=== PATIENT | male | born 1935 | race Caucasian/White ===

== ENCOUNTER 2019-01-30 06:14 | Day surgery (SDC) | payer MEDICARE, BC ==
[2019-01-30] MEDS ORDERED: Lactated Ringers 1,000 ML IV SCH (07:30)
[2019-01-30] MEDS ORDERED: fentaNYL 100 MCG/2 ML SDV ONE (07:35)
[2019-01-30] MEDS ORDERED: Propofol 200 MG/20 ML SDV ONE (07:35)
--- NOTE | 2019-01-30 08:45 | OR ---
DATE OF PROCEDURE: 01/30/2019 PREOPERATIVE DIAGNOSES: Blood in stool, history of colon polyps. POSTOPERATIVE DIAGNOSES: Small transverse colon polyp, blood in stool, etiology unknown; history of polyps. PROCEDURE: Colonoscopy to the cecum with biopsy resection of small transverse colon polyp. SURGEON: Julian Matos MD ANESTHESIA: IV anesthesia with monitored anesthesia care. INDICATION: This 83-year-old white male has blood in the stool. He is referred for a colonoscopy because of this. Additionally, 3 years ago, he had benign polyps removed from his colon. I counseled him for a colonoscopy with possible biopsy and/or polypectomy, including risks and alternatives, and he gave his informed consent to proceed. DESCRIPTION OF PROCEDURE: The patient was placed in the left lateral decubitus position. IV anesthesia was administered by the Anesthesia Service. Time-out was held. A rectal exam was performed, which was unremarkable. The flexible video Olympus colonoscope was introduced through his anus, up his rectum, and out his colon all the way to the cecum. En route, in the transverse colon, we saw a small polyp which was removed with a couple of bites of the biopsy forceps. Once the cecum was reached, the scope was slowly withdrawn examining the mucosa throughout. No additional mucosal abnormalities were noted. The scope was retroflexed in the rectum with the distal rectum appearing unremarkable. The scope was straightened and removed. He tolerated the procedure well. Julian Matos MD /[id number]
[2019-01-30 09:03] VITALS: BP 130/67
== END 2019-01-30 09:45 | disposition home or self-care (01) ==
LOC: JP.SDS 06:14
PROVIDERS: ATTEND Surgery
DX: K92.1 Melena (principal); K63.5 Polyp of colon; I10 Essential (primary) hypertension; I25.10 Atherosclerotic heart disease of native coronary artery without angina pectoris; I48.91 Unspecified atrial fibrillation; E78.5 Hyperlipidemia, unspecified; Z88.1 Allergy status to other antibiotic agents; Z86.010 Personal history of colon polyps
CPT/HCPCS: 45380; 88305; J2704; J3010; J7120

== ENCOUNTER 2020-01-27 08:14 | Day surgery (SDC) | payer MEDICARE, BC ==
[~2020-01-27 08:14] MED LIST: Dextrose 5%-Lactated Ringers 1,000 ML IV SCH; Propofol 200 MG/20 ML SDV ONE; fentaNYL 100 MCG/2 ML SDV ONE
[2020-01-27 10:43] VITALS: BP 116/74; PULSE 53
--- NOTE | 2020-02-09 14:45 | OR ---
DATE OF PROCEDURE: 01/27/2020 SURGEON: Yuna Steiner MD PREOPERATIVE DIAGNOSIS: History of colon polyps with some intermittent rectal bleeding. POSTOPERATIVE DIAGNOSIS: History of colon polyps with intermittent rectal bleeding associated with diffusely excoriated hemorrhoidal columns. OPERATIVE PROCEDURE: Flexible colonoscopy. ANESTHESIA: IV sedation. INDICATIONS FOR PROCEDURE: This is an 84-year-old male presenting with some intermittent rectal bleeding. He does have a history of colon polyps and was referred for a colonoscopy with biopsies and/or polypectomy as indicated. Potential risks of the procedure were reviewed including bleeding and perforation, and he wishes to proceed. DETAILS OF PROCEDURE: The patient was taken to the operating room and placed in a left lateral decubitus position. IV sedation was administered after which the initial digital rectal exam was performed, which was unremarkable. Colonoscope was then placed in the rectum with retroflexion revealing quite excoriated hemorrhoidal columns diffusely. These were mixed hemorrhoids, and none would appear to be appropriate for any banding procedure. The scope was then eventually passed to the level of the cecum. There was otherwise no evident pathology. There was no diverticular disease. No areas of colitis. No polyps or other signs of neoplasia. The scope was then withdrawn, and the above findings were reconfirmed, and the procedure then concluded. If the patient continues to have some problematic bleeding, something like Proctofoam might be useful for control of the inflammation in that area as well as avoidance of any episodes of constipation or ongoing diarrhea. Follow up with Surgery at this point will be p.r.n. Yuan Steiner MD /[id number]
== END 2020-01-27 10:45 | disposition home or self-care (01) ==
LOC: JP.SDS 08:14
PROVIDERS: ATTEND Surgery
DX: K64.8 Other hemorrhoids (principal); K62.5 Hemorrhage of anus and rectum; I48.91 Unspecified atrial fibrillation; E11.22 Type 2 diabetes mellitus with diabetic chronic kidney disease; I12.9 Hypertensive chronic kidney disease with stage 1 through stage 4 chronic kidney disease, or unspecified chronic kidney disease; N18.9 Chronic kidney disease, unspecified; Z86.010 Personal history of colon polyps; Z98.890 Other specified postprocedural states
CPT/HCPCS: 45378; J2704; J3010; J7121

== ENCOUNTER 2021-02-14 12:08 | Inpatient (IN) | payer MEDICARE, BC ==
[2021-02-14] MEDS ORDERED: Sodium Chloride 0.9% 10 ML Syringe FLUSH PRN ×3 (12:40→14:50)
--- NOTE | 2021-02-14 12:54 | EDM.PDOC ---
ED HPI GENERAL MEDICAL PROBLEM - General Chief Complaint: Gastrointestinal Problem Stated Complaint: HEART PROBLEMS Time Seen by Provider: 02/14/21 12:40 Source of Information: Reports: Patient History Limitations: Reports: No Limitations - History of Present Illness INITIAL COMMENTS - FREE TEXT/NARRATIVE: 85 yo male presents with maroon rectal bleeding today. Is a little light-headed with standing. Is taking ASA and warfarin. No pain, nausea or vomiting. No hx of GI bleeding, but does have a hx of diverticular dz. His thinks he looks pale. Takes warfarin for afib. Onset: Today, Sudden Onset Date: 02/14/21 Duration: Hour(s):, Waxing/Waning Location: Reports: Abdomen Quality: Reports: Other (no pain) Severity: Moderate Improves with: Reports: None Worsens with: Reports: Other (unknown) Context: Reports: Other (See HPI) Associated Symptoms: Reports: Other (pale, light-headed). Denies: Chest Pain, Diaphoresis, Nausea/Vomiting, Shortness of Breath Treatments CONVEYANCER: Reports: Other (see below) (none) - Related Data Allergies Allergy/AdvReac Type Severity Reaction Status Date / Time tetracycline [Tetracycline] AdvReac Nausea and Verified 02/14/21 12:56 Vomiting Home Meds: Home Meds Aspirin [Adult Low Dose Aspirin EC] 81 mg PO DAILY 10/08/13 [History] Ciclopirox [Loprox 0.77% Crm] 1 applic TOP ASDIRECTED PRN 10/08/13 [History] Hydrochlorothiazide/Valsartan [Diovan HCT 160-12.5 MG] 25 - 160 mg PO DAILY 10/08/13 [History] Multivitamin with Minerals [Multiple Vitamin] 1 tab PO DAILY 10/08/13 [History] atorvaSTATin [Lipitor] 10 mg PO BEDTIME 10/08/13 [History] Warfarin [Coumadin] 5 mg PO ASDIRECTED 01/24/16 [History] Nitroglycerin [Nitrostat] 0.4 mg SL ASDIRECTED PRN 01/04/19 [History] Psyllium [Metamucil] 1 gm PO DAILY 01/04/19 [History] allopurinoL [Zyloprim] 100 mg PO DAILY 01/04/19 [History] Isosorbide Mononitrate [Imdur] 30 mg PO DAILY 01/28/19 [History] Metoprolol Succinate [Toprol XL 50mg] 50 mg PO DAILY 01/28/19 [History] Lutein 20 mg PO DAILY 01/30/19 [History] Past Medical History HEENT History: Reports: Impaired Vision Other HEENT History: wears glasses Cardiovascular History: Reports: Afib, CAD, High Cholesterol, Hypertension Respiratory History: Reports: Asthma Gastrointestinal History: Reports: Chronic Constipation, Colon Polyp, Dive rticulosis Genitourinary History: Reports: BPH, Renal Disease, Other (See Below) Other Genitourinary History: hematuria Musculoskeletal History: Reports: Fracture, Gout Neurological History: Reports: Migraines, Seizure, Vertigo, Other (See Below) Other Neuro History: meniere disease with tinnitus Endocrine/Metabolic History: Reports: Diabetes, Type II, Obesity/BMI 30+ Hematologic History: Reports: Blood Transfusion(s) Oncologic (Cancer) History: Reports: Prostate, Other (See Below) Other Oncologic History: basal cell carcinoma Dermatologic History: Reports: Other (See Below) Other Dermatologic History: fungal infections - Infectious Disease History Infectious Disease History: Reports: Chicken Pox, Measles, Mumps - Past Surgical History HEENT Surgical History: Reports: Tonsillectomy Cardiovascular Surgical History: Reports: Coronary Artery Bypass, Coronary Artery Stent Respiratory Surgical History: Reports: None GI Surgical History: Reports: Colonoscopy Male Surgical History: Reports: Prostate Biopsy, Prostatectomy, Vasectomy Social & Family History - Family History Family Medical History: No Pertinent Family History - Caffeine Use Caffeine Use: Reports: Tea ED ROS GENERAL - Review of Systems Review Of Systems: See Below Constitutional: Reports: No Symptoms HEENT: Reports: No Symptoms Respiratory: Reports: No Symptoms Cardiovascular: Reports: Lightheadedness GI/Abdominal: Reports: Bloody Stool, Diarrhea. Denies: Abdominal Pain, Constipation, Nausea, Vomiting : Reports: No Symptoms Musculoskeletal: Reports: No Symptoms Skin: Reports: Pallor Neurological: Reports: No Symptoms ED EXAM, GI/ABD - Physical Exam Exam: See Below Exam Limited By: No Limitations General Appearance: Alert, WD/WN, No Apparent Distress Eyes: Bilateral: Normal Appearance Ears: Normal External Exam, Normal Canal, Hearing Grossly Normal Nose: Normal Inspection, No Blood Throat/Mouth: Normal Inspection, Normal Lips, Normal Oropharynx, Normal Voice, No Airway Compromise Head: Atraumatic, Normocephalic Neck: Normal Inspection Respiratory/Chest: No Respiratory Distress, Lungs Clear, Normal Breath Sounds, No Accessory Muscle Use Cardiovascular: Regular Rate, Rhythm, No Edema GI/Abdominal Exam: Soft, Non-Tender, No Distention, Abnormal Bowel Sounds (increased). No: Distended, Guarding, Rigid, Rebound, Tender Back Exam: Normal Inspection Extremities: Normal Inspection, Normal Range of Motion, Non-Tender, No Pedal Edema Neurological: Alert, Oriented, CN II-XII Intact, Normal Cognition, No Motor/Sensory Deficits Psychiatric: Normal Affect, Normal Mood Skin Exam: Warm, Dry, Intact, Normal Color, No Rash Course - Vital Signs Text/Narrative:: Dr. Dunne called @ 1334h Last Recorded V/S: Last Vital Signs Temp 36.4 C 02/14/21 12:55 Pulse 66 02/14/21 12:55 Resp 17 02/14/21 12:55 BP 109/60 02/14/21 12:55 Pulse Ox 96 02/14/21 12:55 - Orders/Labs/Meds Orders: Active Orders 24 hr Category Date Time Status FRESH FROZEN PLASMA [BBK] Stat Lab 02/14/21 12:54 Received RED BLOOD CELLS LP [BBK] Stat Lab 02/14/21 12:54 Received TYPE AND SCREEN [BBK] Stat Lab 02/14/21 12:54 Received Phytonadione [AquaMephyton] 2 mg Med 02/14/21 13:15 Active Sodium Chloride 0.9% [Normal Saline] 50 ml IV ONETIME Sodium Chloride 0.9% [Saline Flush] Med 02/14/21 12:40 Active 10 ml FLUSH ASDIRECTED PRN Sodium Chloride 0.9% [Saline Flush] Med 02/14/21 13:07 Active 10 ml FLUSH ASDIRECTED PRN Saline Lock Insert [OM.PC] Routine Oth 02/14/21 12:40 Ordered Saline Lock Insert [OM.PC] Routine Oth 02/14/21 13:07 Ordered Transfuse Fresh Frozen Plasma [COMM] Stat Oth 02/14/21 13:06 Ordered Medication Orders Phytonadione 2 mg/ Sodium (Chloride) 50.2 mls @ 98.431 mls/hr IV ONETIME ONE Stop: 02/14/21 13:45 Last Admin: 02/14/21 13:20 Dose: 98.431 mls/hr Documented by: [place] Sodium Chloride (Sodium Chloride 0.9% 10 Ml Syringe) 10 ml FLUSH ASDIRECTED PRN PRN Reason: Keep Vein Open Last Admin: 02/14/21 13:21 Dose: 10 ml Documented by: MALINDA Sodium Chloride (Sodium Chloride 0.9% 10 Ml Syringe) 10 ml FLUSH ASDIRECTED PRN PRN Reason: Keep Vein Open Labs: Laboratory Tests 02/14/21 02/14/21 02/14/21 Range/Units 12:54 12:54 12:54 WBC 5.2 (4.5-11.0) K/uL RBC 2.46 L (4.30-5.90) M/uL Hgb 7.1 L (12.0-15.0) g/dL Hct 22.5 L (40.0-54.0) % MCV 92 (80-98) fL MCH 29 (27-31) pg MCHC 32 (32-36) % Plt Count 193 (150-400) K/uL PT 33.6 H (9.5-12.0) sec INR 3.15 H (0.80-1.20) Sodium 137 L (140-148) mmol/L Potassium 4.5 (3.6-5.2) mmol/L Chloride 104 (100-108) mmol/L Carbon Dioxide 25 (21-32) mmol/L Anion Gap 12.5 (5.0-14.0) mmol/L BUN 60 H (7-18) mg/dL Creatinine 1.9 H (0.8-1.3) mg/dL Est Cr Clr Drug Dosing 31.38 mL/min Estimated GFR (MDRD) 34 L (>60) Glucose 152 H (74-106) mg/dL Calcium 8.9 (8.5-10.1) mg/dL Meds: Medications Generic Name Dose Route Start Last Admin Trade Name Freq PRN Reason Stop Dose Admin Phytonadione 2 mg/ Sodium 50.2 mls @ 98.431 mls/hr 02/14/21 13:15 02/14/21 13:20 Chloride IV 02/14/21 13:45 98.431 mls/hr ONETIME ONE Administration Sodium Chloride 10 ml 02/14/21 12:40 02/14/21 13:21 Sodium Chloride 0.9% 10 Ml Syringe FLUSH 10 ml ASDIRECTED PRN Administration Keep Vein Open Sodium Chloride 10 ml 02/14/21 13:07 Sodium Chloride 0.9% 10 Ml Syringe FLUSH ASDIRECTED PRN Keep Vein Open Discontinued Medications Generic Name Dose Route Start Last Admin Trade Name Greggq PRN Reason Stop Dose Admin Phytonadione 2 mg/ Sodium 51 mls @ 100 mls/hr 02/14/21 12:52 Chloride IV 02/14/21 13:22 ONETIME ONE Departure - Departure Time of Disposition: 13:45 Disposition: Admitted As Inpatient 68 Condition: Serious Clinical Impression: GI bleed Qualifiers: GI bleed type/associated pathology: diverticulosis Qualified Code(s): K57.91 - Diverticulosis of intestine, part unspecified, without perforation or abscess with bleeding Anemia Qualifiers: Anemia type: iron deficiency Iron deficiency anemia type: chronic blood loss Qualified Code(s): D50.0 - Iron deficiency anemia secondary to blood loss (chronic) CRF (chronic renal failure) Qualifiers: Chronic kidney disease stage: stage 3 (moderate) Chronic kidney disease stage 3 subtype: stage 3b (GFR 30-44) Qualified Code(s): N18.32 - Chronic kidney disease, stage 3b - Discharge Information *PRESCRIPTION DRUG MONITORING PROGRAM REVIEWED*: Not Applicable *COPY OF PRESCRIPTION DRUG MONITORING REPORT IN PATIENT MERRICK: Not Applicable Referrals: Jurgen Vu MD [Primary Care Provider] - Forms: ED Department Discharge Sepsis Event Note (ED) - Focused Exam Vital Signs: Vital Signs Temp Pulse Resp BP Pulse Ox 02/14/21 12:55 36.4 C 66 17 109/60 96 02/14/21 12:16 36.4 C 66 17 109/60 96 - My Orders Last 24 Hours: My Active Orders 02/14/21 12:40 Sodium Chloride 0.9% [Saline Flush] 10 ml FLUSH ASDIRECTED PRN Saline Lock Insert [OM.PC] Routine 02/14/21 12:54 FRESH FROZEN PLASMA [BBK] Stat RED BLOOD CELLS LP [BBK] Stat TYPE AND SCREEN [BBK] Stat 02/14/21 13:06 Transfuse Fresh Frozen Plasma [COMM] Stat 02/14/21 13:07 Sodium Chloride 0.9% [Saline Flush] 10 ml FLUSH ASDIRECTED PRN Saline Lock Insert [OM.PC] Routine 02/14/21 13:15 Phytonadione [AquaMephyton] 2 mg Sodium Chloride 0.9% [Normal Saline] 50 ml IV ONETIME - Assessment/Plan Last 24 Hours: My Active Orders 02/14/21 12:40 Sodium Chloride 0.9% [Saline Flush] 10 ml FLUSH ASDIRECTED PRN Saline Lock Insert [OM.PC] Routine 02/14/21 12:54 FRESH FROZEN PLASMA [BBK] Stat RED BLOOD CELLS LP [BBK] Stat TYPE AND SCREEN [BBK] Stat 02/14/21 13:06 Transfuse Fresh Frozen Plasma [COMM] Stat 02/14/21 13:07 Sodium Chloride 0.9% [Saline Flush] 10 ml FLUSH ASDIRECTED PRN Saline Lock Insert [OM.PC] Routine 02/14/21 13:15 Phytonadione [AquaMephyton] 2 mg Sodium Chloride 0.9% [Normal Saline] 50 ml IV ONETIME
--- NOTE | 2021-02-14 14:01 | PCM.HP.2 ---
H&P History of Present Illness - General Date of Service: 02/14/21 Admit Problem/Dx: Admission Diagnosis/Problem Admission Diagnosis/Problem Bleeding Source of Information: Patient, Family, Provider, RN Notes Reviewed History Limitations: Reports: No Limitations - History of Present Illness Initial Comments - Free Text/Narative: Mr. Stevens is an 85-year-old gentleman who was admitted through the emergency department with progressive weakness and lightheadedness secondary to GI bleed with acute blood loss anemia. He has a prior history of lower GI bleeding secondary to diverticuli. Over the past 6 days has noted recurrent episodes of hematochezia. The hematochezia has become significantly worse over the last 24 hours. He is on oral anticoagulation with warfarin and aspirin, INR in the emergency department was noted to be supratherapeutic. Hemoglobin obtained in the emergency department is low at 7.1. He has been given IV vitamin K in the emergency department and transfusion of red blood cells as well as fresh frozen plasma has been ordered. - Related Data Allergies/Adverse Reactions: Allergies Allergy/AdvReac Type Severity Reaction Status Date / Time tetracycline [Tetracycline] AdvReac Nausea and Verified 02/14/21 12:56 Vomiting Home Medications: Home Meds Aspirin [Adult Low Dose Aspirin EC] 81 mg PO DAILY 10/08/13 [History] Ciclopirox [Loprox 0.77% Crm] 1 applic TOP ASDIRECTED PRN 10/08/13 [History] Hydrochlorothiazide/Valsartan [Diovan HCT 160-12.5 MG] 25 - 160 mg PO DAILY 10/08/13 [History] Multivitamin with Minerals [Multiple Vitamin] 1 tab PO DAILY 10/08/13 [History] atorvaSTATin [Lipitor] 10 mg PO BEDTIME 10/08/13 [History] Warfarin [Coumadin] 5 mg PO ASDIRECTED 01/24/16 [History] Nitroglycerin [Nitrostat] 0.4 mg SL ASDIRECTED PRN 01/04/19 [History] Psyllium [Metamucil] 1 gm PO DAILY 01/04/19 [History] allopurinoL [Zyloprim] 100 mg PO DAILY 01/04/19 [History] Isosorbide Mononitrate [Imdur] 30 mg PO DAILY 01/28/19 [History] Metoprolol Succinate [Toprol XL 50mg] 50 mg PO DAILY 01/28/19 [History] Lutein 20 mg PO DAILY 01/30/19 [History] Past Medical History HEENT History: Reports: Impaired Vision Other HEENT History: wears glasses Cardiovascular History: Reports: Afib, CAD, High Cholesterol, Hypertension Respiratory History: Reports: Asthma Gastrointestinal History: Reports: Chronic Constipation, Colon Polyp, Diverticulosis Genitourinary History: Reports: BPH, Renal Disease, Other (See Below) Other Genitourinary History: hematuria Musculoskeletal History: Reports: Fracture, Gout Neurological History: Reports: Migraines, Seizure, Vertigo, Other (See Below) Other Neuro History: meniere disease with tinnitus Endocrine/Metabolic History: Reports: Diabetes, Type II, Obesity/BMI 30+ Hematologic History: Reports: Blood Transfusion(s) Oncologic (Cancer) History: Reports: Prostate, Other (See Below) Other Oncologic History: basal cell carcinoma Dermatologic History: Reports: Other (See Below) Other Dermatologic History: fungal infections - Infectious Disease History Infectious Disease History: Reports: Chicken Pox, Measles, Mumps - Past Surgical History HEENT Surgical History: Reports: Tonsillectomy Cardiovascular Surgical History: Reports: Coronary Artery Bypass, Coronary Artery Stent Respiratory Surgical History: Reports: None GI Surgical History: Reports: Colonoscopy Male Surgical History: Reports: Prostate Biopsy, Prostatectomy, Vasectomy Social & Family History - Family History Family Medical History: No Pertinent Family History - Tobacco Use Tobacco Use Status *Q: Never Tobacco User - Caffeine Use Caffeine Use: Reports: Tea - Recreational Drug Use Recreational Drug Use: No H&P Review of Systems - Review of Systems: Review Of Systems: See Below General: Reports: Weakness, Fatigue. Denies: Fever, Chills HEENT: Reports: No Symptoms Pulmonary: Reports: No Symptoms Cardiovascular: Reports: No Symptoms Gastrointestinal: Reports: Hematochezia. Denies: Abdominal Pain, Constipation, Diarrhea, Distension, Hematemesis, Nausea, Vomiting Genitourinary: Reports: No Symptoms Musculoskeletal: Reports: No Symptoms Skin: Reports: No Symptoms Psychiatric: Reports: No Symptoms Neurological: Reports: No Symptoms Hematologic/Lymphatic: Reports: No Symptoms Immunologic: Reports: No Symptoms Exam - Exam Exam: See Below - Vital Signs Vital Signs: Last Vital Signs Temp 97.5 F 02/14/21 12:55 Pulse 66 02/14/21 12:55 Resp 17 09/05/21 12:55 BP 109/60 02/14/21 12:55 Pulse Ox 96 02/14/21 12:55 Weight: 215 lb - Exam Quality Assessment: DVT Prophylaxis General: Alert, Oriented, Cooperative, Moderate Distress HEENT: Conjunctiva Clear, Hearing Intact, Mucosa Moist & Twilight, Normal Nasal Septum, Posterior Pharynx Clear, Pupils Equal Neck: Supple, Trachea Midline, +2 Carotid Pulse wo Bruit Lungs: Clear to Auscultation, Normal Respiratory Effort Cardiovascular: Regular Rate, Normal S1, Normal S2, Irregular Rhythm. No: Systolic Murmur, Diastolic Murmur GI/Abdominal Exam: Soft, Non-Tender, No Organomegaly, No Distention Back Exam: Normal Inspection, Full Range of Motion Extremities: Non-Tender, No Pedal Edema Skin: Warm, Dry, Intact Neurological: Cranial Nerves Intact, Strength Equal Bilateral, Normal Speech, Normal Tone, Sensation Intact. No: Focal Deficit Neuro Extensive - Mental Status: Alert, Oriented x3, Normal Mood/Affect, Normal Cognition, Memory Intact - Patient Data Lab Results Last 24 hrs: Laboratory Results - last 24 hr 02/14/21 02/14/21 02/14/21 Range/Units 12:54 12:54 12:54 WBC 5.2 (4.5-11.0) K/uL RBC 2.46 L (4.30-5.90) M/uL Hgb 7.1 L (12.0-15.0) g/dL Hct 22.5 L (40.0-54.0) % MCV 92 (80-98) fL MCH 29 (27-31) pg MCHC 32 (32-36) % Plt Count 193 (150-400) K/uL PT 33.6 H (9.5-12.0) sec INR 3.15 H (0.80-1.20) Sodium 137 L (140-148) mmol/L Potassium 4.5 (3.6-5.2) mmol/L Chloride 104 (100-108) mmol/L Carbon Dioxide 25 (21-32) mmol/L Anion Gap 12.5 (5.0-14.0) mmol/L BUN 60 H (7-18) mg/dL Creatinine 1.9 H (0.8-1.3) mg/dL Est Cr Clr Drug Dosing 31.38 mL/min Estimated GFR (MDRD) 34 L (>60) Glucose 152 H (74-106) mg/dL Calcium 8.9 (8.5-10.1) mg/dL Result Diagrams: 02/14/21 12:54 02/14/21 12:54 Sepsis Event Note - Evaluation Sepsis Screening Result: No Definite Risk - Focused Exam Vital Signs: Vital Signs Temp Pulse Resp BP Pulse Ox 02/14/21 12:55 97.5 F 66 17 109/60 96 02/14/21 12:16 97.5 F 66 17 109/60 96 *Q Meaningful Use (ADM) - VTE *Q VTE Pharmacological Contraindications *Q: Active Hemorrhage - VTE Risk Assess *Q Each Risk Factor Represents 1 Point: Obesity ( BMI > 25 kg/m2) Total Score 1 Point Risk Factors: 1 Each Risk Factor Represents 2 Points: None Total Score 2 Point Risk Factors: 0 Each Risk Factor Represents 3 Points: Age 75 Years or Greater Total Score 3 Point Risk Factors: 3 Each Risk Factor Represents 5 Points: None Total Score 5 Point Risk Factors: 0 Venous Thromboembolism Risk Factor Score *Q: 4 Problem List Initiated/Reviewed/Updated: Yes Orders Last 24hrs: Active Orders 24 hr Category Date Time Status Patient Status Manage Transfer [TRANSFER] Routine ADT 02/14/21 13:46 Active FRESH FROZEN PLASMA [BBK] Stat Lab 02/14/21 12:54 Received RED BLOOD CELLS LP [BBK] Stat Lab 02/14/21 12:54 Received TYPE AND SCREEN [BBK] Stat Lab 02/14/21 12:54 Received Sodium Chloride 0.9% [Saline Flush] Med 02/14/21 12:40 Active 10 ml FLUSH ASDIRECTED PRN Sodium Chloride 0.9% [Saline Flush] Med 02/14/21 13:07 Active 10 ml FLUSH ASDIRECTED PRN Saline Lock Insert [OM.PC] Routine Oth 02/14/21 12:40 Ordered Saline Lock Insert [OM.PC] Routine Oth 02/14/21 13:07 Ordered Transfuse Fresh Frozen Plasma [COMM] Stat Oth 02/14/21 13:06 Ordered Resuscitation Status Routine Resus Stat 02/14/21 13:49 Ordered Medication Orders Sodium Chloride (Sodium Chloride 0.9% 10 Ml Syringe) 10 ml FLUSH ASDIRECTED PRN PRN Reason: Keep Vein Open Last Admin: 02/14/21 13:21 Dose: 10 ml Documented by: MALINDA Sodium Chloride (Sodium Chloride 0.9% 10 Ml Syringe) 10 ml FLUSH ASDIRECTED PRN PRN Reason: Keep Vein Open Assessment/Plan Comment:: ASSESSMENT AND PLAN GI BLEED-history of previous diverticular bleeding. Complicated by anticoagulation with warfarin and aspirin. -Transfuse 2 units of fresh frozen plasma -IV vitamin K given in the emergency department -Transfuse 1 unit of red blood cells, hold second unit -Serial hemoglobin levels -Hold warfarin and aspirin -N.p.o. -IV fluids for hydration -Maintain 2 IV sites -Protonix 80 mg IV now followed by continuous infusion at 8 mg/h, pending endoscopy results -Consult Dr. 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 CORONARY ARTERY DISEASE-currently asymptomatic -Continue outpatient medications except for aspirin MAINTENANCE ISSUES -DVT prophylaxis; SCUDs, anticoagulation contraindicated because of active hemorrhage -GI prophylaxis; Protonix as above -Acevedo catheter; not indicated -Nutrition; n.p.o. -Nicotine dependence; not required CODE STATUS-FULL CODE ADMISSION STATUS-patient will be admitted to inpatient status, expect at least a 2 night hospital stay for evaluation and management of problems as outlined ab ceci. At the time of this admission I do not reasonably expected evaluation and management of this problem will require more than a 96 hour hospital stay. DISPOSITION-anticipate discharge to home after the hospital stay. PRIMARY CARE PROVIDER-Dr. Vu - Mortality Measure Prognosis:: Good
[2021-02-14] MEDS ORDERED: Sodium Chloride 0.9% 100 ML with Pantoprazole 80 MG IV SCH ×2 (14:50)
[2021-02-14] MEDS ORDERED: Bisacodyl 5 MG Tab PO ONE ×2 (14:50→20:00)
[2021-02-14] MEDS ORDERED: Pantoprazole 40 MG Vial IVPUSH SCH (14:50)
[2021-02-14] MEDS ORDERED: Acetaminophen 325 MG Tab PO PRN (14:50)
[2021-02-14] MEDS ORDERED: Ondansetron 4 MG/2 ML SDV IV PRN (14:50)
[2021-02-14] MEDS ORDERED: Pantoprazole 40 MG Vial IVPUSH ONE (15:15)
[2021-02-14] MEDS: Sodium Chloride 0.9% 100 ML with Pantoprazole 80 MG IV SCH ×2 (15:48)
[2021-02-14] MEDS ORDERED: Polyethylene Glycol 3350 Powder 238 GM Bot PO ONE (17:00)
[2021-02-14] MEDS ORDERED: Nitroglycerin 0.4 MG Tab.SL ONE (19:24)
[2021-02-14] MEDS: Nitroglycerin 0.4 MG Tab.SL SL PRN (19:26)
[2021-02-14] MEDS: atorvaSTATin 10 MG Tab PO SCH (21:17)
[2021-02-15] MEDS: Sodium Chloride 0.9% 1,000 ML IV SCH ×2 (00:18→08:42)
[2021-02-15] MEDS: Sodium Chloride 0.9% 100 ML with Pantoprazole 80 MG IV SCH ×6 (01:11→20:55)
[2021-02-15] MEDS: Nitroglycerin 0.4 MG Tab.SL SL PRN (07:30)
[2021-02-15] MEDS ORDERED: HYDROCHLOROTHIAZIDE PO SCH (09:00)
[2021-02-15] MEDS ORDERED: [UNRECOGNIZED DRUG - OTHER] PO SCH (09:00)
[2021-02-15] MEDS ORDERED: Metoprolol Succinate 50 MG Tab.ER PO SCH (09:00)
[2021-02-15] MEDS ORDERED: VALSARTAN PO SCH (09:00)
[2021-02-15] MEDS: Isosorbide Mononitrate 30 MG Tab.ER PO SCH (10:22)
[2021-02-15] MEDS: Allopurinol 100 MG Tab PO SCH (10:22)
[2021-02-15] MEDS: VALSARTAN PO SCH (10:23)
[2021-02-15] MEDS: HCTZ PO SCH (10:23)
[2021-02-15] MEDS: LUTEIN 20 MG PO SCH (10:26)
--- NOTE | 2021-02-15 13:45 | PCM.PN ---
- General Info Date of Service: 02/15/21 Subjective Update: Patient did have an episode of chest pain last night that resolved with a dose of nitroglycerin. This occurred while he was getting up to go to the bathroom. He had a similar but more intense episode this morning that also resolved with nitroglycerin. EKG did not suggest ischemia and initial troponin was normal but second was mildly elevated. He is pain-free at rest. He did have 1 maroon stool this afternoon but none overnight. Vital signs have been stable. Hemoglobin level was 8 this morning. No abdominal pain. Functional Status: Reports: Pain Controlled, Tolerating Diet - Review of Systems General: Denies: Fever Cardiovascular: Reports: Chest Pain Gastrointestinal: Denies: Hematochezia - Patient Data Vitals - Most Recent: Last Vital Signs Temp 35.5 C L 02/15/21 07:28 Pulse 59 L 02/15/21 11:57 Resp 20 02/15/21 11:57 BP 126/58 L 02/15/21 11:57 Pulse Ox 96 02/15/21 11:57 Weight - Most Recent: 97.522 kg I&O - Last 24 Hours: Intake & Output 02/14/21 02/15/21 02/15/21 22:59 06:59 14:59 Intake Total 3541 1638 Output Total 200 400 Balance 3341 1638 -400 Lab Results Last 24 Hours: Laboratory Results - last 24 hr 02/14/21 02/14/21 02/14/21 Range/Units 12:54 17:44 23:15 WBC (4.5-11.0) K/uL RBC (4.30-5.90) M/uL Hgb 7.7 L 8.4 L (12.0-15.0) g/dL Hct (40.0-54.0) % MCV (80-98) fL MCH (27-31) pg MCHC (32-36) % Plt Count (150-400) K/uL Neut % (Auto) (36-66) % Lymph % (Auto) (24-44) % [place] % (Auto) (2-6) % Eos % (Auto) (2-4) % Baso % (Auto) (0-1) % PT (9.5-12.0) sec INR (0.80-1.20) Sodium (140-148) mmol/L Potassium (3.6-5.2) mmol/L Chloride (100-108) mmol/L Carbon Dioxide (21-32) mmol/L Anion Gap (5.0-14.0) mmol/L BUN (7-18) mg/dL Creatinine (0.8-1.3) mg/dL Est Cr Clr Drug Dosing mL/min Estimated GFR (MDRD) (>60) Glucose (74-106) mg/dL Calcium (8.5-10.1) mg/dL Troponin I (0.000-0.056) ng/mL Blood Type A POSITIVE Gel Antibody Screen Negative Crossmatch See Detail 02/15/21 02/15/21 02/15/21 Range/Units 04:25 04:25 04:25 WBC 4.4 L (4.5-11.0) K/uL RBC 2.67 L (4.30-5.90) M/uL Hgb 8.0 L (12.0-15.0) g/dL Hct 24.3 L (40.0-54.0) % MCV 91 (80-98) fL MCH 30 (27-31) pg MCHC 33 (32-36) % Plt Count 145 L (150-400) K/uL Neut % (Auto) 56.0 (36-66) % Lymph % (Auto) 26.0 (24-44) % [place] % (Auto) 14.9 H (2-6) % Eos % (Auto) 2.9 (2-4) % Baso % (Auto) 0.2 (0-1) % PT 15.1 H (9.5-12.0) sec INR 1.39 H (0.80-1.20) Sodium 138 L (140-148) mmol/L Potassium 4.2 (3.6-5.2) mmol/L Chloride 106 (100-108) mmol/L Carbon Dioxide 25 (21-32) mmol/L Anion Gap 11.2 (5.0-14.0) mmol/L BUN 41 H (7-18) mg/dL Creatinine 1.5 H (0.8-1.3) mg/dL Est Cr Clr Drug Dosing 39.74 mL/min Estimated GFR (MDRD) 45 L (>60) Glucose 101 (74-106) mg/dL Calcium 8.4 L (8.5-10.1) mg/dL Troponin I (0.000-0.056) ng/mL Blood Type Gel Antibody Screen Crossmatch 02/15/21 02/15/21 Range/Units 08:30 12:07 WBC (4.5-11.0) K/uL RBC (4.30-5.90) M/uL Hgb (12.0-15.0) g/dL Hct (40.0-54.0) % MCV (80-98) fL MCH (27-31) pg MCHC (32-36) % Plt Count (150-400) K/uL Neut % (Auto) (36-66) % Lymph % (Auto) (24-44) % [place] % (Auto) (2-6) % Eos % (Auto) (2-4) % Baso % (Auto) (0-1) % PT (9.5-12.0) sec INR (0.80-1.20) Sodium (140-148) mmol/L Potassium (3.6-5.2) mmol/L Chloride (100-108) mmol/L Carbon Dioxide (21-32) mmol/L Anion Gap (5.0-14.0) mmol/L BUN (7-18) mg/dL Creatinine (0.8-1.3) mg/dL Est Cr Clr Drug Dosing mL/min Estimated GFR (MDRD) (>60) Glucose (74-106) mg/dL Calcium (8.5-10.1) mg/dL Troponin I 0.033 0.175 H* (0.000-0.056) ng/mL Blood Type Gel Antibody Screen Crossmatch Med Orders - Current: Current Medications Acetaminophen (Acetaminophen 325 Mg Tab) 650 mg PO Q4H PRN PRN Reason: Pain (Mild 1-3)/fever Last Admin: 02/15/21 01:10 Dose: 650 mg Documented by: Allopurinol (Allopurinol 100 Mg Tab) 100 mg PO DAILY [facility] Last Admin: 02/15/21 10:22 Dose: 100 mg Documented by: Atorvastatin Calcium (Atorvastatin 10 Mg Tab) 10 mg PO BEDTIME [facility] Last Admin: 02/14/21 21:17 Dose: 10 mg Documented by: Pantoprazole Sodium 80 mg/ (Sodium Chloride) 100 mls @ 10 mls/hr IV .Q10H [facility] Last Admin: 02/15/21 11:38 Dose: 10 mls/hr Documented by: Isosorbide Mononitrate (Isosorbide Mononitrate 30 Mg Tab.Er) 30 mg PO DAILY [facility] Last Admin: 02/15/21 10:22 Dose: 30 mg Documented by: Metoprolol Succinate (Metoprolol Succinate 50 Mg Tab.Er) 50 mg PO DAILY [facility] Last Admin: 02/15/21 10:22 Dose: 50 mg Documented by: Nitroglycerin (Nitroglycerin 0.4 Mg Tab.Sl) 0.4 mg SL Q5M PRN PRN Reason: Chest Pain Last Admin: 02/15/21 07:30 Dose: 0.4 mg Documented by: Lutein [Lutein] 20 (Mg Tab (Ptom)) 0 mg PO DAILY [facility] Last Admin: 02/15/21 10:26 Dose: Not Given Documented by: Ondansetron HCl (Ondansetron 4 Mg/2 Ml Sdv) 4 mg IV Q4H PRN PRN Reason: Nausea/Vomiting Valsartan/Hctz 160/ (25mg Tab (Ptom)) 1 each PO DAILY [facility] Last Admin: 02/15/21 10:23 Dose: 1 each Documented by: Sodium Chloride (Sodium Chloride 0.9% 10 Ml Syringe) 10 ml FLUSH ASDIRECTED PRN PRN Reason: Keep Vein Open Discontinued Medications Bisacodyl (Bisacodyl 5 Mg Tab) 10 mg PO ONETIME ONE Stop: 02/14/21 14:51 Last Admin: 02/14/21 15:53 Dose: 10 mg Documented by: Bisacodyl (Bisacodyl 5 Mg Tab) 10 mg PO ONETIME ONE Stop: 02/14/21 20:01 Last Admin: 02/14/21 21:17 Dose: 10 mg Documented by: Phytonadione 2 mg/ Sodium (Chloride) 50.2 mls @ 98.431 mls/hr IV ONETIME ONE Stop: 02/14/21 13:45 Last Admin: 02/14/21 13:20 Dose: 98.431 mls/hr Documented by: Sodium Chloride (Normal Saline) 1,000 mls @ 125 mls/hr IV ASDIRECTED [facility] Last Admin: 02/15/21 08:42 Dose: 125 mls/hr Documented by: Nitroglycerin (Nitroglycerin 0.4 Mg Tab.Sl) Confirm Administered Dose 0.4 mg .ROUTE .STK-MED ONE Stop: 02/14/21 19:25 Last Admin: 02/14/21 19:56 Dose: Not Given Documented by: Pantoprazole Sodium (Pantoprazole 40 Mg Vial) 80 mg IVPUSH ONETIME ONE Stop: 02/14/21 15:16 Last Admin: 02/14/21 15:46 Dose: 80 mg Documented by: Polyethylene Glycol (Polyethylene Glycol 3350 Powder 238 Gm Bot) 238 gm PO ONETIME ONE Stop: 02/14/21 17:01 Last Admin: 02/14/21 17:40 Dose: 238 gram Documented by: Sodium Chloride (Sodium Chloride 0.9% 10 Ml Syringe) 10 ml FLUSH ASDIRECTED PRN PRN Reason: Keep Vein Open Last Admin: 02/14/21 13:21 Dose: 10 ml Documented by: Sodium Chloride (Sodium Chloride 0.9% 10 Ml Syringe) 10 ml FLUSH ASDIRECTED PRN PRN Reason: Keep Vein Open - Exam Quality Assessment: No: Supplemental Oxygen General: Alert, Oriented, Cooperative, No Acute Distress Lungs: Clear to Auscultation, Normal Respiratory Effort Cardiovascular: Regular Rate, Regular Rhythm GI/Abdominal Exam: Soft, No Distention Extremities: No Pedal Edema. No: Increased Warmth Skin: Warm, Dry Psy/Mental Status: Alert, Normal Affect - Patient Data Lab Results Last 24 hrs: Laboratory Results - last 24 hr 02/14/21 02/14/21 02/14/21 Range/Units 12:54 17:44 23:15 WBC (4.5-11.0) K/uL RBC (4.30-5.90) M/uL Hgb 7.7 L 8.4 L (12.0-15.0) g/dL Hct (40.0-54.0) % MCV (80-98) fL MCH (27-31) pg MCHC (32-36) % Plt Count (150-400) K/uL Neut % (Auto) (36-66) % Lymph % (Auto) (24-44) % [place] % (Auto) (2-6) % Eos % (Auto) (2-4) % Baso % (Auto) (0-1) % PT (9.5-12.0) sec INR (0.80-1.20) Sodium (140-148) mmol/L Potassium (3.6-5.2) mmol/L Chloride (100-108) mmol/L Carbon Dioxide (21-32) mmol/L Anion Gap (5.0-14.0) mmol/L BUN (7-18) mg/dL Creatinine (0.8-1.3) mg/dL Est Cr Clr Drug Dosing mL/min Estimated GFR (MDRD) (>60) Glucose (74-106) mg/dL Calcium (8.5-10.1) mg/dL Troponin I (0.000-0.056) ng/mL Blood Type A POSITIVE Gel Antibody Screen Negative Crossmatch See Detail 02/15/21 02/15/21 02/15/21 Range/Units 04:25 04:25 04:25 WBC 4.4 L (4.5-11.0) K/uL RBC 2.67 L (4.30-5.90) M/uL Hgb 8.0 L (12.0-15.0) g/dL Hct 24.3 L (40.0-54.0) % MCV 91 (80-98) fL MCH 30 (27-31) pg MCHC 33 (32-36) % Plt Count 145 L (150-400) K/uL Neut % (Auto) 56.0 (36-66) % Lymph % (Auto) 26.0 (24-44) % [place] % (Auto) 14.9 H (2-6) % Eos % (Auto) 2.9 (2-4) % Baso % (Auto) 0.2 (0-1) % PT 15.1 H (9.5-12.0) sec INR 1.39 H (0.80-1.20) Sodium 138 L (140-148) mmol/L Potassium 4.2 (3.6-5.2) mmol/L Chloride 106 (100-108) mmol/L Carbon Dioxide 25 (21-32) mmol/L Anion Gap 11.2 (5.0-14.0) mmol/L BUN 41 H (7-18) mg/dL Creatinine 1.5 H (0.8-1.3) mg/dL Est Cr Clr Drug Dosing 39.74 mL/min Estimated GFR (MDRD) 45 L (>60) Glucose 101 (74-106) mg/dL Calcium 8.4 L (8.5-10.1) mg/dL Troponin I (0.000-0.056) ng/mL Blood Type Gel Antibody Screen Crossmatch 02/15/21 02/15/21 Range/Units 08:30 12:07 WBC (4.5-11.0) K/uL RBC (4.30-5.90) M/uL Hgb (12.0-15.0) g/dL Hct (40.0-54.0) % MCV (80-98) fL MCH (27-31) pg MCHC (32-36) % Plt Count (150-400) K/uL Neut % (Auto) (36-66) % Lymph % (Auto) (24-44) % [place] % (Auto) (2-6) % Eos % (Auto) (2-4) % Baso % (Auto) (0-1) % PT (9.5-12.0) sec INR (0.80-1.20) Sodium (140-148) mmol/L Potassium (3.6-5.2) mmol/L Chloride (100-108) mmol/L Carbon Dioxide (21-32) mmol/L Anion Gap (5.0-14.0) mmol/L BUN (7-18) mg/dL Creatinine (0.8-1.3) mg/dL Est Cr Clr Drug Dosing mL/min Estimated GFR (MDRD) (>60) Glucose (74-106) mg/dL Calcium (8.5-10.1) mg/dL Troponin I 0.033 0.175 H* (0.000-0.056) ng/mL Blood Type Gel Antibody Screen Crossmatch Result Diagrams: 02/15/21 04:25 02/15/21 04:25 Sepsis Event Note - Evaluation Sepsis Screening Result: Possible Sepsis Risk - Focused Exam Vital Signs: Vital Signs Temp Pulse Pulse Resp BP BP Pulse Ox 02/15/21 11:57 59 L 20 126/58 L 96 02/15/21 10:57 60 18 138/53 L 97 02/15/21 10:22 63 133/72 02/15/21 09:57 63 18 133/72 97 09/06/21 09:30 67 20 163/67 H 97 02/15/21 08:57 67 20 147/47 H 96 02/15/21 08:28 63 18 161/64 H 98 02/15/21 07:37 125/59 L 02/15/21 07:30 180/92 H 02/15/21 07:28 35.5 C L 55 L 20 100 02/15/21 03:15 36.4 C 60 20 139/71 98 - Problem List Review Problem List Initiated/Reviewed/Updated: Yes - My Orders Last 24 Hours: My Active Orders 02/15/21 08:12 EKG 12 Lead [EK] Routine 02/15/21 13:44 Convert IV to Saline Lock [OM.PC] Routine 02/15/21 18:00 HGB [HEMOGLOBIN] [HEME] Routine 02/16/21 05:00 BASIC METABOLIC PANEL,BMP [CHEM] Timed CBC W/O DIFF,HEMOGRAM [HEME] Timed (1) - Plan Plan:: ASSESSMENT AND PLAN Acute gastrointestinal hemorrhage-history of previous diverticular bleeding. Complicated by anticoagulation with warfarin and aspirin. Bleeding seems to have slowed down but he did have another movement this afternoon with blood. No pain. Unable to do EGD/colonoscopy because of chest pain this morning. INR has normalized. -Transfuse 1 unit of red blood cells with goal hemoglobin of 9 given active angina -Serial hemoglobin levels -Hold warfarin and aspirin -Clear liquids today, nothing by mouth after midnight -Gentle IV fluids -Maintain 2 IV sites -Continue PPI drip pending endoscopy results -Consult surgical team for EGD and colonoscopy tomorrow ACUTE BLOOD LOSS ANEMIA-secondary to acute GI bleed as above. Goal hemoglobin level of 9 with active angina and coronary artery disease. -Management as above Elevated troponin-suspect demand ischemia with longstanding coronary artery disease complicated by blood loss anemia as discussed above. EKG did not suggest ST elevation myocardial infarction. Non-ST elevation IN possible but we cannot anticoagulate because of active bleeding. 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 Normalized after vitamin K and FFP. -Hold warfarin -Follow-up INR in a.m. CORONARY ARTERY DISEASE-symptomatic with exertion in the setting of anemia. Case was discussed with his shank burnisher at [facility]. They recommended further work-up with endoscopy and then additional work-up will be dependent on findings and improvement with improvement in hemoglobin. -Continue outpatient medications except for aspirin MAINTENANCE ISSUES -DVT prophylaxis; SCUDs, anticoagulation contraindicated because of active hemorrhage -GI prophylaxis; Protonix as above -Acevedo catheter; not indicated -Nutrition; clear liquids tonight, nothing by mouth after midnight DISPOSITION-anticipate discharge to home after the hospital stay. Isaias Zamudio MD
[2021-02-15] MEDS ORDERED: Polyethylene Glycol 3350 Powder 119 GM Bottle PO ONE (14:22)
[2021-02-15] MEDS: atorvaSTATin 10 MG Tab PO SCH (20:54)
[2021-02-15] MEDS: Melatonin 3 MG Tab PO PRN (21:07)
[2021-02-16] MEDS: Isosorbide Mononitrate 30 MG Tab.ER PO SCH ×2 (06:59→08:12)
[2021-02-16] MEDS: Metoprolol Succinate 25 MG Tab.ER PO SCH ×2 (07:02→08:12)
--- NOTE | 2021-02-16 07:23 | PCM.PN ---
- General Info Date of Service: 02/16/21 Subjective Update: No acute events overnight. Patient did have a small amount of blood with colonoscopy prep but this was clear by the end of the prep. No bloody stools overnight. No abdominal pain. No fevers. No nausea. He did not have any episodes of chest pain overnight and is chest pain-free this morning. Hemoglobin is 8.9 this morning. He did have some mild bradycardia overnight heart rates have been in the 50s to 60 for the most part. Troponin level did rise with the highest level so far being 1.1 this morning. - Patient Data Vitals - Most Recent: Last Vital Signs Temp 35.3 C L 02/16/21 07:04 Pulse 61 02/16/21 07:04 Resp 18 02/16/21 07:04 BP 149/74 H 02/16/21 07:04 Pulse Ox 92 L 02/16/21 07:04 Weight - Most Recent: 97.522 kg I&O - Last 24 Hours: Intake & Output 02/15/21 02/16/21 02/16/21 22:59 06:59 14:59 Intake Total 1110 717 Output Total 700 Balance 1110 17 Lab Results Last 24 Hours: Laboratory Results - last 24 hr 02/14/21 02/15/21 02/15/21 Range/Units 12:54 08:30 12:07 WBC (4.5-11.0) K/uL RBC (4.30-5.90) M/uL Hgb (12.0-15.0) g/dL Hct (40.0-54.0) % MCV (80-98) fL MCH (27-31) pg MCHC (32-36) % Plt Count (150-400) K/uL Sodium (140-148) mmol/L Potassium (3.6-5.2) mmol/L Chloride (100-108) mmol/L Carbon Dioxide (21-32) mmol/L Anion Gap (5.0-14.0) mmol/L BUN (7-18) mg/dL Creatinine (0.8-1.3) mg/dL Est Cr Clr Drug Dosing mL/min Estimated GFR (MDRD) (>60) Glucose (74-106) mg/dL Calcium (8.5-10.1) mg/dL Troponin I 0.033 0.175 H* (0.000-0.056) ng/mL Blood Type A POSITIVE Gel Antibody Screen Negative Crossmatch See Detail 02/15/21 02/15/21 02/16/21 Range/Units 20:17 20:17 04:15 WBC 4.5 (4.5-11.0) K/uL RBC 2.99 L (4.30-5.90) M/uL Hgb 9.8 L 8.9 L (12.0-15.0) g/dL Hct 27.1 L (40.0-54.0) % MCV 91 (80-98) fL MCH 30 (27-31) pg MCHC 33 (32-36) % Plt Count 145 L (150-400) K/uL Sodium (140-148) mmol/L Potassium (3.6-5.2) mmol/L Chloride (100-108) mmol/L Carbon Dioxide (21-32) mmol/L Anion Gap (5.0-14.0) mmol/L BUN (7-18) mg/dL Creatinine (0.8-1.3) mg/dL Est Cr Clr Drug Dosing mL/min Estimated GFR (MDRD) (>60) Glucose (74-106) mg/dL Calcium (8.5-10.1) mg/dL Troponin I 0.257 H* (0.000-0.056) ng/mL Blood Type Gel Antibody Screen Crossmatch 02/16/21 Range/Units 04:15 WBC (4.5-11.0) K/uL RBC (4.30-5.90) M/uL Hgb (12.0-15.0) g/dL Hct (40.0-54.0) % MCV (80-98) fL MCH (27-31) pg MCHC (32-36) % Plt Count (150-400) K/uL Sodium 141 (140-148) mmol/L Potassium 4.0 (3.6-5.2) mmol/L Chloride 107 (100-108) mmol/L Carbon Dioxide 24 (21-32) mmol/L Anion Gap 9.7 (5.0-14.0) mmol/L BUN 24 H (7-18) mg/dL Creatinine 1.4 H (0.8-1.3) mg/dL Est Cr Clr Drug Dosing 42.58 mL/min Estimated GFR (MDRD) 48 L (>60) Glucose 109 H (74-106) mg/dL Calcium 8.6 (8.5-10.1) mg/dL Troponin I 1.149 H* (0.000-0.056) ng/mL Blood Type Gel Antibody Screen Crossmatch Med Orders - Current: Current Medications Acetaminophen (Acetaminophen 325 Mg Tab) 650 mg PO Q4H PRN PRN Reason: Pain (Mild 1-3)/fever Last Admin: 02/15/21 01:10 Dose: 650 mg Documented by: Allopurinol (Allopurinol 100 Mg Tab) 100 mg PO DAILY [facility] Last Admin: 02/15/21 10:22 Dose: 100 mg Documented by: Atorvastatin Calcium (Atorvastatin 10 Mg Tab) 10 mg PO BEDTIME [facility] Last Admin: 02/15/21 20:54 Dose: 10 mg Documented by: Pantoprazole Sodium 80 mg/ (Sodium Chloride) 100 mls @ 10 mls/hr IV .Q10H [facility] Last Admin: 02/15/21 20:55 Dose: 10 mls/hr Documented by: Isosorbide Mononitrate (Isosorbide Mononitrate 30 Mg Tab.Er) 30 mg PO DAILY [facility] Last Admin: 02/16/21 06:59 Dose: 30 mg Documented by: Melatonin (Melatonin 3 Mg Tab) 9 mg PO BEDTIME PRN PRN Reason: Sleep Last Admin: 02/15/21 21:07 Dose: 9 mg Documented by: Metoprolol Succinate (Metoprolol Succinate 25 Mg Tab.Er) 25 mg PO DAILY [facility] Last Admin: 02/16/21 07:02 Dose: 25 mg Documented by: Nitroglycerin (Nitroglycerin 0.4 Mg Tab.Sl) 0.4 mg SL Q5M PRN PRN Reason: Chest Pain Last Admin: 02/15/21 07:30 Dose: 0.4 mg Documented by: Lutein [Lutein] 20 (Mg Tab (Ptom)) 0 mg PO DAILY [facility] Last Admin: 02/15/21 10:26 Dose: Not Given Documented by: Ondansetron HCl (Ondansetron 4 Mg/2 Ml Sdv) 4 mg IV Q4H PRN PRN Reason: Nausea/Vomiting Valsartan/Hctz 160/ (25mg Tab (Ptom)) 1 each PO DAILY [facility] Last Admin: 02/15/21 10:23 Dose: 1 each Documented by: Sodium Chloride (Sodium Chloride 0.9% 10 Ml Syringe) 10 ml FLUSH ASDIRECTED PRN PRN Reason: Keep Vein Open Discontinued Medications Bisacodyl (Bisacodyl 5 Mg Tab) 10 mg PO ONETIME ONE Stop: 02/14/21 14:51 Last Admin: 02/14/21 15:53 Dose: 10 mg Documented by: Bisacodyl (Bisacodyl 5 Mg Tab) 10 mg PO ONETIME ONE Stop: 02/14/21 20:01 Last Admin: 02/14/21 21:17 Dose: 10 mg Documented by: Phytonadione 2 mg/ Sodium (Chloride) 50.2 mls @ 98.431 mls/hr IV ONETIME ONE Stop: 02/14/21 13:45 Last Admin: 02/14/21 13:20 Dose: 98.431 mls/hr Documented by: Sodium Chloride (Normal Saline) 1,000 mls @ 125 mls/hr IV ASDIRECTED [facility] Last Admin: 02/15/21 08:42 Dose: 125 mls/hr Documented by: Metoprolol Succinate (Metoprolol Succinate 50 Mg Tab.Er) 50 mg PO DAILY [facility] Last Admin: 02/15/21 10:22 Dose: 50 mg Documented by: Nitroglycerin (Nitroglycerin 0.4 Mg Tab.Sl) Confirm Administered Dose 0.4 mg .ROUTE .STK-MED ONE Stop: 02/14/21 19:25 Last Admin: 02/14/21 19:56 Dose: Not Given Documented by: Pantoprazole Sodium (Pantoprazole 40 Mg Vial) 80 mg IVPUSH ONETIME ONE Stop: 02/14/21 15:16 Last Admin: 02/14/21 15:46 Dose: 80 mg Documented by: Polyethylene Glycol (Polyethylene Glycol 3350 Powder 238 Gm Bot) 238 gm PO ONETIME ONE Stop: 02/14/21 17:01 Last Admin: 02/14/21 17:40 Dose: 238 gram Documented by: Polyethylene Glycol (Polyethylene Glycol 3350 Powder 119 Gm Bottle) 119 gm PO ONETIME ONE Stop: 02/15/21 14:23 Last Admin: 02/15/21 15:28 Dose: 119 gm Documented by: Sodium Chloride (Sodium Chloride 0.9% 10 Ml Syringe) 10 ml FLUSH ASDIRECTED PRN PRN Reason: Keep Vein Open Last Admin: 02/14/21 13:21 Dose: 10 ml Documented by: Sodium Chloride (Sodium Chloride 0.9% 10 Ml Syringe) 10 ml FLUSH ASDIRECTED PRN PRN Reason: Keep Vein Open - Exam Quality Assessment: No: Supplemental Oxygen General: Alert, Oriented, Cooperative, No Acute Distress Lungs: Normal Respiratory Effort. No: Wheezing Cardiovascular: Irregular Rhythm, Bradycardia GI/Abdominal Exam: Soft, No Distention Extremities: No Pedal Edema. No: Increased Warmth Skin: Warm, Dry Psy/Mental Status: Alert, Normal Affect - Patient Data Lab Results Last 24 hrs: Laboratory Results - last 24 hr 02/14/21 02/15/21 02/15/21 Range/Units 12:54 08:30 12:07 WBC (4.5-11.0) K/uL RBC (4.30-5.90) M/uL Hgb (12.0-15.0) g/dL Hct (40.0-54.0) % MCV (80-98) fL MCH (27-31) pg MCHC (32-36) % Plt Count (150-400) K/uL Sodium (140-148) mmol/L Potassium (3.6-5.2) mmol/L Chloride (100-108) mmol/L Carbon Dioxide (21-32) mmol/L Anion Gap (5.0-14.0) mmol/L BUN (7-18) mg/dL Creatinine (0.8-1.3) mg/dL Est Cr Clr Drug Dosing mL/min Estimated GFR (MDRD) (>60) Glucose (74-106) mg/dL Calcium (8.5-10.1) mg/dL Troponin I 0.033 0.175 H* (0.000-0.056) ng/mL Blood Type A POSITIVE Gel Antibody Screen Negative Crossmatch See Detail 02/15/21 02/15/21 02/16/21 Range/Units 20:17 20:17 04:15 WBC 4.5 (4.5-11.0) K/uL RBC 2.99 L (4.30-5.90) M/uL Hgb 9.8 L 8.9 L (12.0-15.0) g/dL Hct 27.1 L (40.0-54.0) % MCV 91 (80-98) fL MCH 30 (27-31) pg MCHC 33 (32-36) % Plt Count 145 L (150-400) K/uL Sodium (140-148) mmol/L Potassium (3.6-5.2) mmol/L Chloride (100-108) mmol/L Carbon Dioxide (21-32) mmol/L Anion Gap (5.0-14.0) mmol/L BUN (7-18) mg/dL Creatinine (0.8-1.3) mg/dL Est Cr Clr Drug Dosing mL/min Estimated GFR (MDRD) (>60) Glucose (74-106) mg/dL Calcium (8.5-10.1) mg/dL Troponin I 0.257 H* (0.000-0.056) ng/mL Blood Type Gel Antibody Screen Crossmatch 02/16/21 Range/Units 04:15 WBC (4.5-11.0) K/uL RBC (4.30-5.90) M/uL Hgb (12.0-15.0) g/dL Hct (40.0-54.0) % MCV (80-98) fL MCH (27-31) pg MCHC (32-36) % Plt Count (150-400) K/uL Sodium 141 (140-148) mmol/L Potassium 4.0 (3.6-5.2) mmol/L Chloride 107 (100-108) mmol/L Carbon Dioxide 24 (21-32) mmol/L Anion Gap 9.7 (5.0-14.0) mmol/L BUN 24 H (7-18) mg/dL Creatinine 1.4 H (0.8-1.3) mg/dL Est Cr Clr Drug Dosing 42.58 mL/min Estimated GFR (MDRD) 48 L (>60) Glucose 109 H (74-106) mg/dL Calcium 8.6 (8.5-10.1) mg/dL Troponin I 1.149 H* (0.000-0.056) ng/mL Blood Type Gel Antibody Screen Crossmatch Result Diagrams: 02/16/21 04:15 02/16/21 04:15 Sepsis Event Note - Evaluation Sepsis Screening Result: Possible Sepsis Risk - Focused Exam Vital Signs: Vital Signs Temp Pulse Pulse Resp BP BP BP 02/16/21 07:04 35.3 C L 61 18 149/74 H 02/16/21 07:02 61 149/74 H 02/16/21 06:59 149/74 H 02/16/21 02:37 36.5 C 62 18 144/59 H 02/15/21 22:32 35.8 C L 56 L 16 135/58 L 02/15/21 19:21 36.0 C L 47 L 20 136/61 Pulse Ox 02/16/21 07:04 92 L 02/16/21 07:02 02/16/21 06:59 02/16/21 02:37 95 02/15/21 22:32 96 02/15/21 19:21 96 - Problem List Review Problem List Initiated/Reviewed/Updated: Yes - My Orders Last 24 Hours: My Active Orders 02/15/21 08:12 EKG 12 Lead [EK] Routine 02/15/21 13:44 Convert IV to Saline Lock [OM.PC] Routine 02/15/21 13:49 Transfuse Red Blood Cells [COMM] Routine 02/15/21 Dinner NPO After Midnight [Nothing per Oral After Midnight Diet] [DIET] 02/15/21 21:01 Melatonin 9 mg PO BEDTIME PRN 02/16/21 05:46 EKG 12 Lead [EK] Routine 02/16/21 05:47 EKG Documentation Completion [RC] ASDIRECTED 02/16/21 09:00 Metoprolol Succinate [Toprol XL] 25 mg PO DAILY 02/16/21 12:00 TROPONIN I [CHEM] Timed 02/16/21 18:00 HGB [HEMOGLOBIN] [HEME] Timed 02/17/21 05:00 BASIC METABOLIC PANEL,BMP [CHEM] Timed CBC W/O DIFF,HEMOGRAM [HEME] Timed (1) TROPONIN I [CHEM] Timed - Plan Plan:: ASSESSMENT AND PLAN - Acute gastrointestinal hemorrhage-history of previous diverticular bleeding. Complicated by anticoagulation with warfarin and aspirin. Bleeding seems to have stopped. Still suspect diverticular bleeding. He has required 3 units of blood so far. -Transfuse blood as needed with goal hemoglobin of 9 given active angina -Serial hemoglobin levels -Hold warfarin and aspirin -N.p.o. until after the colonoscopy -Gentle IV fluids -Maintain 2 IV sites -Continue PPI drip pending endoscopy results -EGD and colonoscopy today ACUTE BLOOD LOSS ANEMIA-secondary to acute GI bleed as above. Goal hemoglobin level of 9 with active angina and coronary artery disease. -Management as above Elevated troponin-suspect demand ischemia with longstanding coronary artery disease complicated by blood loss anemia as discussed above. EKG x2 have not suggested ST elevation myocardial infarction. Non-ST elevation [place] possible but we cannot anticoagulate because of active bleeding. Still leaning towards demand ischemia though level has risen to 1.1. -Serial troponin levels -Additional cardiology input based on serial troponins and endoscopy findings CHRONIC ORAL ANTICOAGULATION SECONDARY TO ATRIAL FIBRILLATION-INR supratherapeu tic at 3.4 at admission. Normalized after vitamin K and FFP. -Hold warfarin CORONARY ARTERY DISEASE-symptomatic with exertion in the setting of anemia. Case was discussed with his sports instructor at [facility] [employer] in [place], recommended further work-up with endoscopy and then additional work-up will be dependent on findings and resolution/continuation of chest pain with improvement in hemoglobin. -Continue outpatient medications except for aspirin MAINTENANCE ISSUES -DVT prophylaxis; SCUDs, anticoagulation contraindicated because of active hemorrhage -GI prophylaxis; Protonix as above -Acevedo catheter; not indicated -Nutrition; nothing by mouth until after the procedures DISPOSITION-anticipate discharge to home after the hospital stay. Isaias Zamudio MD
[2021-02-16] MEDS: Sodium Chloride 0.9% 100 ML with Pantoprazole 80 MG IV SCH ×4 (07:35→18:55)
[2021-02-16] MEDS ORDERED: fentaNYL 100 MCG/2 ML SDV ONE (09:25)
[2021-02-16] MEDS ORDERED: Propofol 200 MG/20 ML SDV ONE (09:25)
[2021-02-16] MEDS: LUTEIN 20 MG PO SCH (12:11)
[2021-02-16] MEDS: Allopurinol 100 MG Tab PO SCH (12:15)
[2021-02-16] MEDS: HCTZ PO SCH (12:15)
[2021-02-16] MEDS: VALSARTAN PO SCH (12:15)
--- NOTE | 2021-02-16 18:27 | PCM.EKG ---
#1 Interpretation EKG Date: 02/15/21 Time: 08:29 Rhythm: A-Fib Rate (Beats/Min): 65 [place]: Normal P-Wave: Variable QRS: Wide (NSIVCD) ST-T: Depressed (slight ST depression V2-V6) QT: Normal [place]/PQ Interval: n/a Comparison: NA - No Prior EKG #2 Interpretation EKG Date: 02/16/21 Time: 06:13 Rhythm: A-Fib Rate (Beats/Min): 51 [place]: Normal P-Wave: Variable QRS: Wide (NSIVCD) ST-T: Normal QT: Normal [place]/PQ Interval: n/a Comparison: Change From Previous EKG (no ST depression compared to 02/15/21)
[2021-02-16] MEDS: Melatonin 3 MG Tab PO PRN (20:10)
[2021-02-16] MEDS: atorvaSTATin 10 MG Tab PO SCH (20:10)
[2021-02-17] MEDS: Sodium Chloride 0.9% 100 ML with Pantoprazole 80 MG IV SCH ×2 (04:26)
[2021-02-17] MEDS: Isosorbide Mononitrate 30 MG Tab.ER PO SCH (08:24)
[2021-02-17] MEDS: VALSARTAN PO SCH (08:24)
[2021-02-17] MEDS: Allopurinol 100 MG Tab PO SCH (08:24)
[2021-02-17] MEDS: HCTZ PO SCH (08:24)
[2021-02-17] MEDS: LUTEIN 20 MG PO SCH (08:27)
[2021-02-17] MEDS: Metoprolol Succinate 25 MG Tab.ER PO SCH (09:28)
--- NOTE | 2021-02-17 10:50 | PCM.PN ---
- General Info Date of Service: 02/17/21 Subjective Update: No acute events overnight. He did have a couple of bloody stools yesterday after the colonoscopy but none overnight. No chest pain overnight or this morning. He has been walking in the [place]. No abdominal pain or nausea. Tolerating his diet. Bradycardic most of the night with heart rates in the 40s and 50s. Hemoglobin stable. Functional Status: Reports: Pain Controlled - Review of Systems Cardiovascular: Denies: Chest Pain Gastrointestinal: Denies: Abdominal Pain, Hematochezia - Patient Data Vitals - Most Recent: Last Vital Signs Temp 36.4 C 02/17/21 07:09 Pulse 54 L 02/17/21 07:09 Resp 16 02/17/21 07:09 BP 105/47 L 02/17/21 08:24 Pulse Ox 97 02/17/21 07:09 Weight - Most Recent: 112.309 kg I&O - Last 24 Hours: Intake & Output 02/16/21 02/17/21 02/17/21 22:59 06:59 14:59 Intake Total 660 600 Output Total 300 200 Balance 660 -300 400 Lab Results Last 24 Hours: Laboratory Results - last 24 hr 02/16/21 02/16/21 02/17/21 Range/Units 12:14 18:20 04:30 WBC 4.8 (4.5-11.0) K/uL RBC 3.03 L (4.30-5.90) M/uL Hgb 9.4 L 8.9 L (12.0-15.0) g/dL Hct 27.6 L (40.0-54.0) % MCV 91 (80-98) fL MCH 29 (27-31) pg MCHC 32 (32-36) % Plt Count 137 L (150-400) K/uL Sodium (140-148) mmol/L Potassium (3.6-5.2) mmol/L Chloride (100-108) mmol/L Carbon Dioxide (21-32) mmol/L Anion Gap (5.0-14.0) mmol/L BUN (7-18) mg/dL Creatinine (0.8-1.3) mg/dL Est Cr Clr Drug Dosing mL/min Estimated GFR (MDRD) (>60) Glucose (74-106) mg/dL Calcium (8.5-10.1) mg/dL Troponin I 0.810 H* (0.000-0.056) ng/mL 02/17/21 Range/Units 04:30 WBC (4.5-11.0) K/uL RBC (4.30-5.90) M/uL Hgb (12.0-15.0) g/dL Hct (40.0-54.0) % MCV (80-98) fL MCH (27-31) pg MCHC (32-36) % Plt Count (150-400) K/uL Sodium 139 L (140-148) mmol/L Potassium 4.1 (3.6-5.2) mmol/L Chloride 106 (100-108) mmol/L Carbon Dioxide 24 (21-32) mmol/L Anion Gap 13.1 (5.0-14.0) mmol/L BUN 18 (7-18) mg/dL Creatinine 1.4 H (0.8-1.3) mg/dL Est Cr Clr Drug Dosing 42.41 mL/min Estimated GFR (MDRD) 48 L (>60) Glucose 106 (74-106) mg/dL Calcium 8.7 (8.5-10.1) mg/dL Troponin I 0.321 H* (0.000-0.056) ng/mL Med Orders - Current: Current Medications Acetaminophen (Acetaminophen 325 Mg Tab) 650 mg PO Q4H PRN PRN Reason: Pain (Mild 1-3)/fever Last Admin: 02/15/21 01:10 Dose: 650 mg Documented by: Allopurinol (Allopurinol 100 Mg Tab) 100 mg PO DAILY [facility] Last Admin: 02/17/21 08:24 Dose: 100 mg Documented by: Atorvastatin Calcium (Atorvastatin 10 Mg Tab) 10 mg PO BEDTIME [facility] Last Admin: 02/16/21 20:10 Dose: 10 mg Documented by: Pantoprazole Sodium 80 mg/ (Sodium Chloride) 100 mls @ 10 mls/hr IV .Q10H [facility] Last Admin: 02/17/21 04:26 Dose: 10 mls/hr Documented by: Isosorbide Mononitrate (Isosorbide Mononitrate 30 Mg Tab.Er) 30 mg PO DAILY [facility] Last Admin: 02/17/21 08:24 Dose: 30 mg Documented by: Melatonin (Melatonin 3 Mg Tab) 9 mg PO BEDTIME PRN PRN Reason: Sleep Last Admin: 02/16/21 20:10 Dose: 9 mg Documented by: Nitroglycerin (Nitroglycerin 0.4 Mg Tab.Sl) 0.4 mg SL Q5M PRN PRN Reason: Chest Pain Last Admin: 02/15/21 07:30 Dose: 0.4 mg Documented by: Lutein [Lutein] 20 (Mg Tab (Ptom)) 0 mg PO DAILY [facility] Last Admin: 02/17/21 08:27 Dose: Not Given Documented by: Ondansetron HCl (Ondansetron 4 Mg/2 Ml Sdv) 4 mg IV Q4H PRN PRN Reason: Nausea/Vomiting Valsartan/Hctz 160/ (25mg Tab (Ptom)) 1 each PO DAILY [facility] Last Admin: 02/17/21 08:24 Dose: 1 each Documented by: Sodium Chloride (Sodium Chloride 0.9% 10 Ml Syringe) 10 ml FLUSH ASDIRECTED PRN PRN Reason: Keep Vein Open Discontinued Medications Bisacodyl (Bisacodyl 5 Mg Tab) 10 mg PO ONETIME ONE Stop: 02/14/21 14:51 Last Admin: 02/14/21 15:53 Dose: 10 mg Documented by: Bisacodyl (Bisacodyl 5 Mg Tab) 10 mg PO ONETIME ONE Stop: 02/14/21 20:01 Last Admin: 02/14/21 21:17 Dose: 10 mg Documented by: Fentanyl (Fentanyl 100 Mcg/2 Ml Sdv) Confirm Administered Dose 100 mcg .ROUTE .STK-MED ONE Stop: 02/16/21 09:26 Phytonadione 2 mg/ Sodium (Chloride) 50.2 mls @ 98.431 mls/hr IV ONETIME ONE Stop: 02/14/21 13:45 Last Admin: 02/14/21 13:20 Dose: 98.431 mls/hr Documented by: Sodium Chloride (Normal Saline) 1,000 mls @ 125 mls/hr IV ASDIRECTED [facility] Last Admin: 02/15/21 08:42 Dose: 125 mls/hr Documented by: Metoprolol Succinate (Metoprolol Succinate 50 Mg Tab.Er) 50 mg PO DAILY [facility] Last Admin: 02/15/21 10:22 Dose: 50 mg Documented by: Metoprolol Succinate (Metoprolol Succinate 25 Mg Tab.Er) 25 mg PO DAILY [facility] Last Admin: 02/17/21 09:28 Dose: Not Given Documented by: Nitroglycerin (Nitroglycerin 0.4 Mg Tab.Sl) Confirm Administered Dose 0.4 mg .ROUTE .STK-MED ONE Stop: 02/14/21 19:25 Last Admin: 02/14/21 19:56 Dose: Not Given Documented by: Pantoprazole Sodium (Pantoprazole 40 Mg Vial) 80 mg IVPUSH ONETIME ONE Stop: 02/14/21 15:16 Last Admin: 02/14/21 15:46 Dose: 80 mg Documented by: Polyethylene Glycol (Polyethylene Glycol 3350 Powder 238 Gm Bot) 238 gm PO ONETIME ONE Stop: 02/14/21 17:01 Last Admin: 02/14/21 17:40 Dose: 238 gram Documented by: Polyethylene Glycol (Polyethylene Glycol 3350 Powder 119 Gm Bottle) 119 gm PO ONETIME ONE Stop: 02/15/21 14:23 Last Admin: 02/15/21 15:28 Dose: 119 gm Documented by: Propofol (Propofol 200 Mg/20 Ml Sdv) Confirm Administered Dose 200 mg .ROUTE .STK-MED ONE Stop: 02/16/21 09:26 Sodium Chloride (Sodium Chloride 0.9% 10 Ml Syringe) 10 ml FLUSH ASDIRECTED PRN PRN Reason: Keep Vein Open Last Admin: 02/14/21 13:21 Dose: 10 ml Documented by: Sodium Chloride (Sodium Chloride 0.9% 10 Ml Syringe) 10 ml FLUSH ASDIRECTED PRN PRN Reason: Keep Vein Open - Exam Quality Assessment: No: Supplemental Oxygen General: Alert, Oriented, Cooperative, No Acute Distress Lungs: Normal Respiratory Effort Cardiovascular: Irregular Rhythm, Bradycardia GI/Abdominal Exam: Soft, No Distention Extremities: No Pedal Edema Psy/Mental Status: Alert, Normal Affect - Patient Data Lab Results Last 24 hrs: Laboratory Results - last 24 hr 02/16/21 02/16/21 02/17/21 Range/Units 12:14 18:20 04:30 WBC 4.8 (4.5-11.0) K/uL RBC 3.03 L (4.30-5.90) M/uL Hgb 9.4 L 8.9 L (12.0-15.0) g/dL Hct 27.6 L (40.0-54.0) % MCV 91 (80-98) fL MCH 29 (27-31) pg MCHC 32 (32-36) % Plt Count 137 L (150-400) K/uL Sodium (140-148) mmol/L Potassium (3.6-5.2) mmol/L Chloride (100-108) mmol/L Carbon Dioxide (21-32) mmol/L Anion Gap (5.0-14.0) mmol/L BUN (7-18) mg/dL Creatinine (0.8-1.3) mg/dL Est Cr Clr Drug Dosing mL/min Estimated GFR (MDRD) (>60) Glucose (74-106) mg/dL Calcium (8.5-10.1) mg/dL Troponin I 0.810 H* (0.000-0.056) ng/mL 02/17/21 Range/Units 04:30 WBC (4.5-11.0) K/uL RBC (4.30-5.90) M/uL Hgb (12.0-15.0) g/dL Hct (40.0-54.0) % MCV (80-98) fL MCH (27-31) pg MCHC (32-36) % Plt Count (150-400) K/uL Sodium 139 L (140-148) mmol/L Potassium 4.1 (3.6-5.2) mmol/L Chloride 106 (100-108) mmol/L Carbon Dioxide 24 (21-32) mmol/L Anion Gap 13.1 (5.0-14.0) mmol/L BUN 18 (7-18) mg/dL Creatinine 1.4 H (0.8-1.3) mg/dL Est Cr Clr Drug Dosing 42.41 mL/min Estimated GFR (MDRD) 48 L (>60) Glucose 106 (74-106) mg/dL Calcium 8.7 (8.5-10.1) mg/dL Troponin I 0.321 H* (0.000-0.056) ng/mL Result Diagrams: 02/17/21 04:30 02/17/21 04:30 Sepsis Event Note - Evaluation Sepsis Screening Result: No Definite Risk - Focused Exam Vital Signs: Vital Signs Temp Pulse Resp BP BP BP Pulse Ox 02/17/21 08:24 105/47 L 02/17/21 07:09 36.4 C 54 L 16 127/50 L 97 02/17/21 04:20 35.9 C L 75 18 135/69 97 - Problem List Review Problem List Initiated/Reviewed/Updated: Yes - My Orders Last 24 Hours: My Active Orders 02/17/21 10:49 PT Evaluation and Treatment [CONS] Routine Convert IV to Saline Lock [OM.PC] Routine 02/17/21 Lunch Regular Diet [DIET] - Plan Plan:: ASSESSMENT AND PLAN - Acute gastrointestinal hemorrhage-history of previous diverticular bleeding and this is suspected again during this episode. Complicated by anticoagulation with warfarin and aspirin. Bleeding seems to have stopped and hemoglobin is stable. He has required 3 units of blood so far. -Transfuse blood as needed with goal hemoglobin of 9 given active angina -Serial hemoglobin levels -Hold warfarin and aspirin -Regular diet -Saline lock IV -Maintain 2 IV sites ACUTE BLOOD LOSS ANEMIA-secondary to acute GI bleed as above. Goal hemoglobin level of 9 with active angina and coronary artery disease. -Management as above Elevated troponin-suspect demand ischemia with longstanding coronary artery disease complicated by blood loss anemia as discussed above. EKG x2 have not suggested ST elevation myocardial infarction. Troponin trending down and no active chest pain. CHRONIC ORAL ANTICOAGULATION SECONDARY TO ATRIAL FIBRILLATION-INR supratherapeutic at 3.4 at admission. Normalized after vitamin K and FFP. -Hold warfarin CORONARY ARTERY DISEASE-symptomatic with exertion in the setting of anemia. Case was discussed with his safety leader at [facility] in [place], recommended further work-up with endoscopy and then additional work-up will be dependent on findings and resolution/continuation of chest pain with improvement in hemoglobin. -Continue outpatient medications MAINTENANCE ISSUES -DVT prophylaxis; SCUDs, anticoagulation contraindicated because of active hemorrhage -GI prophylaxis; Protonix as above -Acevedo catheter; not indicated -Nutrition; regular diet DISPOSITION-anticipate discharge to home after the hospital stay. Isaias Zamudio MD
[2021-02-17] MEDS: atorvaSTATin 10 MG Tab PO SCH (20:12)
[2021-02-17] MEDS: Melatonin 3 MG Tab PO PRN (20:27)
[2021-02-18] MEDS: LUTEIN 20 MG PO SCH (08:44)
[2021-02-18] MEDS: Isosorbide Mononitrate 30 MG Tab.ER PO SCH (08:46)
[2021-02-18] MEDS: HCTZ PO SCH (08:46)
[2021-02-18] MEDS: VALSARTAN PO SCH (08:46)
[2021-02-18] MEDS: Allopurinol 100 MG Tab PO SCH (08:46)
[2021-02-18] MEDS ORDERED: Aspirin 81 MG Tab.EC PO SCH (09:00)
[2021-02-18] MEDS ORDERED: Metoprolol Succinate 25 MG Tab.ER PO ONE (10:21)
--- NOTE | 2021-02-18 10:22 | PCM.DCSUM1 ---
Discharge Summary - Hospital Course Brief History: 85-year-old male with history of coronary artery disease status post CABG, stage III kidney disease, type 2 diabetes mellitus who presented with hematochezia, dizziness and weakness. He was admitted for management of an acute lower gastrointestinal hemorrhage with anemia due to blood loss. Diagnosis: Stroke: No - Discharge Data Discharge Date: 02/18/21 Discharge Disposition: Home, W Home Health Agency 06 Condition: Good - Referral to Home Health Date of Face to Face Encounter: 02/18/21 Reason for Homebound Status: weakness, exertional angina Primary Care Physician: Jurgen Vu MD Skilled Need: Nursing and PT - Discharge Diagnosis/Problem(s) (1) Acute lower gastrointestinal hemorrhage SNOMED Code(s): 51958593 ICD Code: K92.2 - GASTROINTESTINAL HEMORRHAGE, UNSPECIFIED Status: Acute (2) Anemia due to blood loss, acute SNOMED Code(s): 486103487 ICD Code: D62 - ACUTE POSTHEMORRHAGIC ANEMIA Status: Acute (3) Demand ischemia of myocardium SNOMED Code(s): 083286383, 287556350972680 ICD Code: I24.8 - OTHER FORMS OF ACUTE ISCHEMIC HEART DISEASE Status: Acute (4) CRF (chronic renal failure) SNOMED Code(s): 93747527 ICD Code: N18.9 - CHRONIC KIDNEY DISEASE, UNSPECIFIED Status: Chronic Qualifiers: Chronic kidney disease stage: stage 3 (moderate) Chronic kidney disease stage 3 subtype: stage 3b (GFR 30-44) Qualified Code(s): N18.32 - Chronic kidney disease, stage 3b (5) Type 2 diabetes mellitus SNOMED Code(s): 74357069 ICD Code: E11.9 - TYPE 2 DIABETES MELLITUS WITHOUT COMPLICATIONS Status: Chronic Qualifiers: Diabetes mellitus intermediate project manager insulin use: without intermediate project manager use Diabetes mellitus complication status: without complication Qualified Code(s): E11.9 - Type 2 diabetes mellitus without complications (6) History of atrial fibrillation SNOMED Code(s): 721624393 ICD Code: Z86.79 - PERSONAL HISTORY OF OTHER DISEASES OF THE CIRCULATORY SYSTEM Status: Chronic (7) CAD (coronary artery disease) SNOMED Code(s): 32883930 ICD Code: I25.10 - ATHSCL HEART DISEASE OF [place] CORONARY ARTERY W/O ANG PCTRS Status: Chronic Qualifiers: Coronary Disease-Associated Artery/Lesion type: bypass graft [place] vs. transplanted heart: [place] heart Associated angina: with stable angina Qualified Code(s): I25.708 - Atherosclerosis of coronary artery bypass graft(s), unspecified, with other forms of angina pectoris - Patient Summary/Data Consults: Consultations 02/14/21 14:50 Consult to Physician [CONS] Routine Consulting Provider: David Olson Call Completed to Consulting Physician: Yes Reason for Consult: Acute GI bleed 02/17/21 10:49 PT Evaluation and Treatment [CONS] Routine Please Evaluate and Treat. PT Reason for Consult: Strengthening This query below is only for informational purposes and is not editable. Admission Diagnosis/Problem: Bleeding Hospital Course: Alfred presented to the emergency room with hematochezia, dizziness and weakness. He was admitted to the hospital for management of suspected acute lower gastrointestinal hemorrhage with anemia due to blood loss. His INR was mildly supratherapeutic at the time of presentation. His hemoglobin was only 7.1 so he did receive a unit of blood along with vitamin K and 2 units of fresh frozen plasma. He was admitted to the hospital for further management. Repeat hemoglobin later in the day was up to 7.7 but he continued to bleed so a second unit of blood was transfused. On the night after admission he did have an episode of chest pain with exertion. He did receive nitroglycerin and the pain resolved. The next morning he had another episode of chest pain with exertion that did also respond to nitroglycerin. EKG and troponin obtained at that time did not suggest acute ischemia. We had been planning a colonoscopy and EGD but because of the chest pain we elected to hold off. Serial troponin levels did rise with a peak of 1.1. I did discuss the case with cardiology at [facility] with the rising troponin. We were suspicious that this was related to his chronic heart disease that was exacerbated by the blood loss anemia. They recommended transfusing with a goal of 9 for his hemoglobin and then considering additional work-up after he had recovered from the hospital stay given no EKG changes. Once the patient did have a hemoglobin of 9 he has not had any more episodes of chest pain. I suspect this was more of a demand ischemia with longstanding coronary disease and severe anemia. We would not of been able to anticoagulate him with his acute gastrointestinal hemorrhage anyway. Once the patient had got the hemoglobin up to 9 and chest pain resolved we did perform an EGD and colonoscopy. These did not reveal any source of bleeding. We suspect this was a diverticular bleed that occurred in the setting of chronic anticoagulation. He has been off anticoagulation during the hospital stay and the plan is for him to stay off for several more days. We did review anticoagulation medications and discussed risk versus benefit of warfarin as well as apixaban. I believe that the apixaban is going to be a safer medication for him. We did discuss the fact that there is no reversal agent for this medication if he has bleeding but that hopefully the steady plasma level will be safer than the ups and downs of the warfarin. The plan is for him to start this medication in 5 days and remain off anticoagulation until that time. His hemoglobin has been stable and his bleeding has stopped and he is safe for discharge home at this time. Also during the hospital stay we did note some bradycardia. We reduced his beta-galileo and then eventually held it. 25 mg led to bradycardia in the 40s and 50s but without any beta-galileo on board his heart rate nuha into the 80s so the plan is for him to go home on 12.5 mg of long-acting metoprolol. A new prescription was sent to his pharmacy. Also of note, the patient was interested in home care to help ease his transition home after the hospital stay. - Patient Instructions Diet: Regular Diet as Tolerated Activity: As Tolerated Showering/Bathing: May Shower Other/Special Instructions: 1. You were in the hospital for management of an acute lower gastrointestinal hemorrhage that I suspect was caused by a combination of long-term anticoagulation and diverticular disease of your colon. Your condition has improved after stopping your blood thinner and reversing the anticoagulation. We did perform an EGD and colonoscopy and neither of these showed anything concerning. The bleeding has stopped and your hemoglobin level is stable. We did discuss changing blood thinners from warfarin to apixaban (Eliquis). This should be a safer medication and reduce the risk of ga strointestinal bleeding. There are no specific dietary changes that you need to make. Please listen to your body has you advance your activity. If you develop shortness of breath or chest pain you should take a break. 2. Medication changes -. --your dose of Metoprolol has changed. Stop taking the 50 mg dose and in its place start taking 12.5 mg daily. --stop taking warfarin. --start taking Apixaban (Eliquis) 2.5 mg twice daily. Please start taking this medication on February 22. --stop taking Valsartan/HCTZ because your blood pressure has been on the low side. If your blood pressure rises between now and your follow-up visit this medication may be restarted. 3. I have placed a referral to home health care. They will provide nursing and physical therapy services to help ease your transition home. 4. Follow-up as scheduled with Dr. Vu next week. You should have your hemoglobin level checked to ensure that you are blood levels are rising. - Discharge Plan *PRESCRIPTION DRUG MONITORING PROGRAM REVIEWED*: Not Applicable *COPY OF PRESCRIPTION DRUG MONITORING REPORT IN PATIENT MERRICK: Not Applicable Prescriptions/Med Rec: Apixaban [Eliquis] 2.5 mg PO BID #60 tablet Metoprolol Succinate 12.5 mg PO DAILY #90 tab.er.24h Home Medications: Home Meds Aspirin [Adult Low Dose Aspirin EC] 81 mg PO DAILY 10/08/13 [History] Ciclopirox [Loprox 0.77% Crm] 1 applic TOP ASDIRECTED PRN 10/08/13 [History] Multivitamin with Minerals [Multiple Vitamin] 1 tab PO DAILY 10/08/13 [History] atorvaSTATin [Lipitor] 10 mg PO BEDTIME 10/08/13 [History] Nitroglycerin [Nitrostat] 0.4 mg SL ASDIRECTED PRN 01/04/19 [History] Psyllium [Metamucil] 1 gm PO DAILY 01/04/19 [History] allopurinoL [Zyloprim] 100 mg PO DAILY 01/04/19 [History] Isosorbide Mononitrate [Imdur] 30 mg PO DAILY 01/28/19 [History] Lutein 20 mg PO DAILY 01/30/19 [History] Apixaban [Eliquis] 2.5 mg PO BID #60 tablet 02/18/21 [Rx] Metoprolol Succinate 12.5 mg PO DAILY #90 tab.er.24h 02/18/21 [Rx] Oxygen Therapy Mode: Room Air Patient Handouts: Gastrointestinal Bleeding, [id number], Apixaban oral tablets Referrals: Jurgen Vu MD [Primary Care Provider] - 02/25/21 1:30 pm (Please arrive 15 minutes early to register for your appointment. Please have a hemoglobin checked at your appointment.) - Discharge Summary/Plan Comment DC Time >30 min.: Yes Total # of Minutes for Discharge Time: 45 - Patient Data Vitals - Most Recent: Last Vital Signs Temp 36.5 C 02/18/21 07:00 Pulse 56 L 02/18/21 07:00 Resp 18 02/18/21 07:00 BP 109/54 L 02/18/21 08:46 Pulse Ox 95 02/18/21 07:00 Weight - Most Recent: 112.582 kg I&O - Last 24 hours: Intake & Output 02/17/21 02/18/21 02/18/21 22:59 06:59 14:59 Intake Total 540 600 300 Output Total 200 1000 200 Balance 340 -400 100 Lab Results - Last 24 hrs: Laboratory Results - last 24 hr 02/14/21 Range/Units 12:54 Crossmatch See Detail DEVIN Results - Last 24 hrs: Microbiology 02/16/21 10:48 CLOtest - Final Stomach NEGATIVE CLOTEST REFERENCE RANGE: NEGATIVE Med Orders - Current: Current Medications Acetaminophen (Acetaminophen 325 Mg Tab) 650 mg PO Q4H PRN PRN Reason: Pain (Mild 1-3)/fever Last Admin: 02/15/21 01:10 Dose: 650 mg Documented by: Allopurinol (Allopurinol 100 Mg Tab) 100 mg PO DAILY [facility] Last Admin: 02/18/21 08:46 Dose: 100 mg Documented by: Aspirin (Aspirin 81 Mg Tab.Ec) 81 mg PO DAILY [facility] Last Admin: 02/18/21 08:46 Dose: 81 mg Documented by: Atorvastatin Calcium (Atorvastatin 10 Mg Tab) 10 mg PO BEDTIME [facility] Last Admin: 02/17/21 20:12 Dose: 10 mg Documented by: Isosorbide Mononitrate (Isosorbide Mononitrate 30 Mg Tab.Er) 30 mg PO DAILY [facility] Last Admin: 02/18/21 08:46 Dose: 30 mg Documented by: Melatonin (Melatonin 3 Mg Tab) 9 mg PO BEDTIME PRN PRN Reason: Sleep Last Admin: 02/17/21 20:27 Dose: 9 mg Documented by: Nitroglycerin (Nitroglycerin 0.4 Mg Tab.Sl) 0.4 mg SL Q5M PRN PRN Reason: Chest Pain Last Admin: 02/15/21 07:30 Dose: 0.4 mg Documented by: Lutein [Lutein] 20 (Mg Tab (Ptom)) 0 mg PO DAILY [facility] Last Admin: 02/18/21 08:44 Dose: Not Given Documented by: Ondansetron HCl (Ondansetron 4 Mg/2 Ml Sdv) 4 mg IV Q4H PRN PRN Reason: Nausea/Vomiting Valsartan/Hctz 160/ (25mg Tab (Ptom)) 1 each PO DAILY [facility] Last Admin: 02/18/21 08:46 Dose: 1 each Documented by: Sodium Chloride (Sodium Chloride 0.9% 10 Ml Syringe) 10 ml FLUSH ASDIRECTED PRN PRN Reason: Keep Vein Open Discontinued Medications Bisacodyl (Bisacodyl 5 Mg Tab) 10 mg PO ONETIME ONE Stop: 02/14/21 14:51 Last Admin: 02/14/21 15:53 Dose: 10 mg Documented by: Bisacodyl (Bisacodyl 5 Mg Tab) 10 mg PO ONETIME ONE Stop: 02/14/21 20:01 Last Admin: 02/14/21 21:17 Dose: 10 mg Documented by: Fentanyl (Fentanyl 100 Mcg/2 Ml Sdv) Confirm Administered Dose 100 mcg .ROUTE .STK-MED ONE Stop: 02/16/21 09:26 Phytonadione 2 mg/ Sodium (Chloride) 50.2 mls @ 98.431 mls/hr IV ONETIME ONE Stop: 02/14/21 13:45 Last Admin: 02/14/21 13:20 Dose: 98.431 mls/hr Documented by: Sodium Chloride (Normal Saline) 1,000 mls @ 125 mls/hr IV ASDIRECTED [facility] Last Admin: 02/15/21 08:42 Dose: 125 mls/hr Documented by: Pantoprazole Sodium 80 mg/ (Sodium Chloride) 100 mls @ 10 mls/hr IV .Q10H [facility] Last Admin: 02/17/21 04:26 Dose: 10 mls/hr Documented by: Metoprolol Succinate (Metoprolol Succinate 50 Mg Tab.Er) 50 mg PO DAILY [facility] Last Admin: 02/15/21 10:22 Dose: 50 mg Documented by: Metoprolol Succinate (Metoprolol Succinate 25 Mg Tab.Er) 25 mg PO DAILY [facility] Last Admin: 02/17/21 09:28 Dose: Not Given Documented by: Nitroglycerin (Nitroglycerin 0.4 Mg Tab.Sl) Confirm Administered Dose 0.4 mg .ROUTE .STK-MED ONE Stop: 02/14/21 19:25 Last Admin: 02/14/21 19:56 Dose: Not Given Documented by: Pantoprazole Sodium (Pantoprazole 40 Mg Vial) 80 mg IVPUSH ONETIME ONE Stop: 02/14/21 15:16 Last Admin: 02/14/21 15:46 Dose: 80 mg Documented by: Polyethylene Glycol (Polyethylene Glycol 3350 Powder 238 Gm Bot) 238 gm PO ONETIME ONE Stop: 02/14/21 17:01 Last Admin: 02/14/21 17:40 Dose: 238 gram Documented by: Polyethylene Glycol (Polyethylene Glycol 3350 Powder 119 Gm Bottle) 119 gm PO ONETIME ONE Stop: 02/15/21 14:23 Last Admin: 02/15/21 15:28 Dose: 119 gm Documented by: Propofol (Propofol 200 Mg/20 Ml Sdv) Confirm Administered Dose 200 mg .ROUTE .STK-MED ONE Stop: 02/16/21 09:26 Sodium Chloride (Sodium Chloride 0.9% 10 Ml Syringe) 10 ml FLUSH ASDIRECTED PRN PRN Reason: Keep Vein Open Last Admin: 02/14/21 13:21 Dose: 10 ml Documented by: Sodium Chloride (Sodium Chloride 0.9% 10 Ml Syringe) 10 ml FLUSH ASDIRECTED PRN PRN Reason: Keep Vein Open *Q Meaningful Use (DIS) - VTE *Q VTE Pharmacological Contraindications *Q: Active Hemorrhage
[2021-02-18 10:45] VITALS: BP 119/56; PULSE 59
--- NOTE | 2021-02-24 22:23 | OR ---
DATE OF PROCEDURE: 02/16/2021 SURGEON: Yuan Steiner MD PREOPERATIVE DIAGNOSIS: Lower gastrointestinal bleeding. POSTOPERATIVE DIAGNOSES: 1. Lower gastrointestinal bleeding associated with: a. Minimal antral gastritis (no upper gastrointestinal bleeding or bleeding source identified). 2. Colonoscopy showing old blood within the sigmoid colon and rectum with scattered uncomplicated left colonic diverticulosis (no blood or bleeding, but diverticulosis likely recent bleeding source). OPERATIVE PROCEDURES: 1. Esophagogastroduodenoscopy with antral biopsies for CLOtest. 2. Flexible colonoscopy. ANESTHESIA: IV sedation. INDICATIONS FOR PROCEDURE: This is an 85-year-old male presenting with some recent lower GI bleeding. Plan is to proceed with upper and lower endoscopy for diagnostic purposes with biopsies as indicated. Potential risks including bleeding and perforation were discussed, and the patient wishes to proceed. DETAILS OF PROCEDURE: The patient was taken to the operating room, placed in a left lateral decubitus position. IV sedation was administered, after which the upper GI endoscope was passed orally through the length of the esophagus and into the stomach with retroflexion view of the fundus and thereafter through the pyloric channel to the junction of the 3rd and 4th portions of the duodenum. Findings included normal hypopharynx, larynx, upper esophageal sphincter, esophageal body. No significant hiatal hernia was present. Within the stomach, there was some very mild redness in the antrum without erosions or ulcers. The pyloric channel and visualized portions of the duodenum were unremarkable. At this point, biopsies were obtained from the antrum and sent for CLOtest for H pylori. Minimal bleeding from the biopsy site was seen and the procedure then concluded. Attention was taken to the colonoscopy. The initial digital rectal exam was performed, which was unremarkable. Colonoscope was then passed into the rectum with retroflexion revealing uncomplicated hemorrhoidal columns. The scope was then eventually passed to the cecum. The prep was fairly good. There was some old blood within the sigmoid colon and rectum. This was at this point quite dark. No active bleeding or fresh blood was seen. There was uncomplicated left colonic diverticulosis present, but otherwise there were no areas of colitis and no polyps or other signs of neoplasia. The scope was then withdrawn with the above findings reconfirmed, and the procedure then concluded. that we are most likely dealing with recent diverticulosis bleeding with no active bleeding present. Yuan Steiner MD /[id number]
== END 2021-02-18 11:21 | disposition home health service (06) | DRG 813 ==
LOC: JP.ED 12:08 → JP.MS 13:46
PROVIDERS: ADMIT Hospitalist; ATTEND Internal Medicine
PROC: 30233N1 Transfusion of Nonautologous Red Blood Cells into Peripheral Vein, Percutaneous Approach (ICD-10-PCS; principal; 2021-02-14)
PROC: 30233K1 Transfusion of Nonautologous Frozen Plasma into Peripheral Vein, Percutaneous Approach (ICD-10-PCS; 2021-02-14)
PROC: 0DB68ZX Excision of Stomach, Via Natural or Artificial Opening Endoscopic, Diagnostic (ICD-10-PCS; 2021-02-16)
PROC: 0DJD8ZZ Inspection of Lower Intestinal Tract, Via Natural or Artificial Opening Endoscopic (ICD-10-PCS; 2021-02-16)
DX: K57.91 Diverticulosis of intestine, part unspecified, without perforation or abscess with bleeding (principal); D50.0 Iron deficiency anemia secondary to blood loss (chronic); D68.32 Hemorrhagic disorder due to extrinsic circulating anticoagulants; K57.31 Diverticulosis of large intestine without perforation or abscess with bleeding; D62 Acute posthemorrhagic anemia; I25.10 Atherosclerotic heart disease of native coronary artery without angina pectoris; I12.9 Hypertensive chronic kidney disease with stage 1 through stage 4 chronic kidney disease, or unspecified chronic kidney disease; I24.8 Other forms of acute ischemic heart disease; N18.32 Chronic kidney disease, stage 3b; E11.22 Type 2 diabetes mellitus with diabetic chronic kidney disease; I25.708 Atherosclerosis of coronary artery bypass graft(s), unspecified, with other forms of angina pectoris; M10.9 Gout, unspecified; Z85.828 Personal history of other malignant neoplasm of skin; Z95.1 Presence of aortocoronary bypass graft; Z95.5 Presence of coronary angioplasty implant and graft; Z85.46 Personal history of malignant neoplasm of prostate; T45.515A Adverse effect of anticoagulants, initial encounter; H54.7 Unspecified visual loss; E78.00 Pure hypercholesterolemia, unspecified; Z79.899 Other long term (current) drug therapy; K59.09 Other constipation; N40.0 Benign prostatic hyperplasia without lower urinary tract symptoms; J45.909 Unspecified asthma, uncomplicated; I48.91 Unspecified atrial fibrillation; R00.1 Bradycardia, unspecified; Z86.79 Personal history of other diseases of the circulatory system; Z88.1 Allergy status to other antibiotic agents; Z79.82 Long term (current) use of aspirin; Z79.01 Long term (current) use of anticoagulants
CPT/HCPCS: 36415; 80048; 85027; 85610; 86850; 86900; 86901; 86920 ×3; 86922 ×3; 96365; 99285; J3430; 36430; 84484; 85018; 85025; 87081; 93005; 97161-GP; A9270-GY; C9113; J2704; J3010; J7030; P9016; P9017

== ENCOUNTER 2023-06-22 07:08 | Day surgery (SDC) | payer MEDICARE, BC ==
[2023-06-22] MEDS ORDERED: Sodium Chloride 0.9% 10 ML Syringe FLUSH PRN (07:30)
[2023-06-22 09:10] VITALS: BP 142/89; PULSE 45
== END 2023-06-22 09:25 | disposition home or self-care (01) ==
LOC: JP.SDS 07:08
PROVIDERS: ATTEND Ophthalmology
DX: E11.36 Type 2 diabetes mellitus with diabetic cataract (principal); H26.9 Unspecified cataract; E11.22 Type 2 diabetes mellitus with diabetic chronic kidney disease; N18.9 Chronic kidney disease, unspecified; Z79.899 Other long term (current) drug therapy; Z88.8 Allergy status to other drugs, medicaments and biological substances
CPT/HCPCS: 66984; J3490

== ENCOUNTER → 2023-07-06 | Day surgery (SDC) | payer MEDICARE, BC ==
[~2023-07-06] MED LIST changes: -Dextrose 5%-Lactated Ringers 1,000 ML IV SCH; -Propofol 200 MG/20 ML SDV ONE; +Sodium Chloride 0.9% 10 ML Syringe FLUSH PRN; -fentaNYL 100 MCG/2 ML SDV ONE
[2023-07-06 08:24] VITALS: BP 125/52; PULSE 40
== END ==
LOC: JP.SDS 06:31
PROVIDERS: ATTEND Ophthalmology
DX: E11.36 Type 2 diabetes mellitus with diabetic cataract (principal); K21.9 Gastro-esophageal reflux disease without esophagitis
CPT/HCPCS: 66984; V2632